=== PATIENT | male | born 1975 | race Two or more races ===

== ENCOUNTER 2021-08-15 23:25 | Inpatient (IN) | payer OTHER ==
[~2021-08-15] VITALS: Ht 157.5 cm; Wt 86.3 kg
[2021-08-15 22:50] VITALS: BP 122/76
[2021-08-15] MEDS ORDERED: ALBU2.5V8 IH (23:44)
[2021-08-16] MEDS ORDERED: HYDROcodone/APAP 5/325MG 1 TAB TABLET PO PRN
[2021-08-16] MEDS: diphenhydrAMINE 50 MG/ML VIAL IVP PRN ×2 (00:13→20:54)
[2021-08-16] MEDS: IV NORMAL SALINE 1000ML BAG 1,000 ML IV SCH ×2 (00:13→12:51)
[2021-08-16] MEDS ORDERED: ALBUTEROL SULFATE 8GM INHALER. INH PRN (00:15)
[2021-08-16] MEDS ORDERED: cefTRIAXone IV Push 1 GM VIAL. IVP SCH (00:30)
[2021-08-16 03:11] VITALS: BP 127/78
[2021-08-16 05:20] LABS: BASO # 0.1 x10^3/uL (0.0-0.2); BASO % 1 % (0-3); EOS % 0 % (0-3); LYMPH # 0.6 x10^3/uL (1.0-4.8); LYMPH % 9 % (24-48); MEAN CORPUSCULAR HEMOGLOBIN 25 pg (25-35); MEAN CORPUSCULAR HGB CONC 32 g/dL (31-37); MEAN CORPUSCULAR VOLUME 76 fL (79-100); MONO # 0.6 x10^3/uL (0.0-1.1); MONO % 9 % (0-9); NEUT # 5.4 x10^3/uL (1.8-7.7); NEUT % 81 % (31-73); PLATELET COUNT 72 x10^3/uL (140-400); RED BLOOD COUNT 4.88 x10^6/uL (4.30-5.70); RED CELL DISTRIBUTION WIDTH 14.3 % (11.5-14.5); WHITE BLOOD COUNT 6.6 x10^3/uL (4.0-11.0)
[2021-08-16 05:50] LABS: CALCIUM 8.4 mg/dL (8.5-10.1); CREATININE 1.5 mg/dL (0.7-1.3); GFR 49.9; POTASSIUM 4.5 mmol/L (3.5-5.1)
[2021-08-16 07:00] VITALS: BP 145/102
--- NOTE | 2021-08-16 08:54 | PDOC1 ---
History and Physical Date of Service: DOS: DATE: 08/16/21 TIME: 08:48 Chief Complaint: Chief Complain: Flulike symptoms History of Present Illness: HPI: 46-year-old male with past medical history of senior care psoriasis and sinusitis since May who presents to [facility] ER for flulike symptoms and a rash since last Monday. Apparently, he was admitted in February 2020 for respiratory failure but he was both influenza and Covid negative at that time. Patient has also been dealing with sinusitis since May is ever since he stopped taking Cosentyx for his psoriasis. He has been on 3 different antibiotics and he says that his last CT showed acute on chronic sinusitis. Patient does report yellow sputum production and postnasal drip and cough. He also reports that his fevers on Monday was up to 103. He also describes his rash is starting in his upper extremities and his chest which is dark red and there is some itchiness. Patient denies any chills, abdominal pain, bloody stools, dysuria, chest pain or syncope or palpitations. S Past Medical/Surgical History: PMH/PSH: Past Medical Histor: sinus infections Past Surgical History: LIPOMA REMOVAL Allergies: Allergies: Coded Allergies: blue dye (Verified Allergy, Severe, Anaphylaxis, 08/16/21) red dye (Verified Allergy, Severe, Anaphylaxis, 08/16/21) ibuprofen (Verified Allergy, Unknown, ANAPHYLAXIS, 08/16/21) POSSIBLY DUE TO RED OR BLUE DYE Family History: Family History: Reviewed with no relative findings in the chart Social History: Social History: Denies any alcohol, tobacco or drug abuse Current Medications: Current Medications Current Medications Sodium Chloride 1,000 ml @ 75 mls/hr [id number] IV Last administered on 08/16/21at 00:13; Start 08/16/21 at 00:00 Diphenhydramine HCl (Benadryl) 50 mg PRN Q6HRS PRN IVP ITCHING Last administer ed on 08/16/21at 00:13; Start 08/16/21 at 00:00 Acetaminophen/ Hydrocodone Bitart (Lortab 5/325) 1 tab PRN Q4HRS PRN PO PAIN; Start 08/16/21 at 00:00 Ceftriaxone Sodium (Rocephin) 1 gm Q24H IVP Last administered on 08/16/21at 00:14; Start 08/16/21 at 00:30 Albuterol Sulfate (Ventolin Hfa) 2 puff PRN Q4HRS PRN INH SOA Last administered on 08/16/21at 00:12; Start 08/16/21 at 00:15 Active Scripts Active Reported Proair Hfa Inhaler (Albuterol Sulfate) 8.5 Gm Hfa.aer.ad 2 Puff IH Q4HRS PRN 21 Days ROS: Review of Systems Review of System REVIEW OF SYSTEMS: GENERAL: Flulike symptoms SKIN: No bruising, hair changes or rashes. EYES: No blurred, double or loss of vision. NOSE AND THROAT: No history of nosebleeds, hoarseness or sore throat. HEART: No history of palpitations, chest pain or shortness of breath on exertion. LUNGS: Positive for shortness of breath GASTROINTESTINAL: Denies changes in appetite, nausea, vomiting, diarrhea or constipation. GENITOURINARY: No history of frequency, urgency, hesitancy or nocturia. NEUROLOGIC: Denies history of numbness, tingling, or tremor. PSYCHIATRIC: No history of panic, anxiety or depression. ENDOCRINE: No history of heat or cold intolerance, polyuria or polydipsia. EXTREMITIES: Denies joint pain, pain on walking or stiffness. Physical Exam: Vital Signs: Vital Signs Date Time Temp Pulse Resp B/P (MAP) Pulse Ox O2 Delivery O2 Flow Rate FiO2 08/16/21 08:00 Nasal Cannula 4.0 08/16/21 07:00 97.7 72 20 145/102 (116) 97 97.7 Physcial Exam: General: Well developed, well nourished, no acute distress, well appearing HEENT: Pupils equally round and reactive to light, EOMI, no discharge, normal conjunctiva Neck: Supple, no nuchal rigidity, no JVD, trachea midline, no tenderness Cardiac: RRR, no murmurs, no gallops, no rubs Chest/Lungs: CTAB, no wheeze, no rhonchi, no crackles Abdomen: soft, non-distended, no guarding, no peritoneal signs, non-tender Back: No tenderness Extremities: Diffuse purpuric-like rash on his extremities torso and chest and lower extremities. There are definitely psoriatic lesions on his trunk and elbows. Nontender or no bleeding. Neuro: Alert and oriented x 4, no focal deficits, normal speech Labs: Labs: Laboratory Tests Test 08/16/21 04:50 White Blood Count 6.6 x10^3/uL (4.0-11.0) Red Blood Count 4.88 x10^6/uL (4.30-5.70) Hemoglobin 12.0 g/dL (13.0-17.5) Hematocrit 37.0 % (39.0-53.0) Mean Corpuscular Volume 76 fL (79-100) Mean Corpuscular Hemoglobin 25 pg (25-35) Mean Corpuscular Hemoglobin Concent 32 g/dL (31-37) Red Cell Distribution Width 14.3 % (11.5-14.5) Platelet Count 72 x10^3/uL (140-400) Neutrophils (%) (Auto) 81 % (31-73) Lymphocytes (%) (Auto) 9 % (24-48) Monocytes (%) (Auto) 9 % (0-9) Eosinophils (%) (Auto) 0 % (0-3) Basophils (%) (Auto) 1 % (0-3) Neutrophils # (Auto) 5.4 x10^3/uL (1.8-7.7) Lymphocytes # (Auto) 0.6 x10^3/uL (1.0-4.8) Monocytes # (Auto) 0.6 x10^3/uL (0.0-1.1) Eosinophils # (Auto) 0.0 x10^3/uL (0.0-0.7) Basophils # (Auto) 0.1 x10^3/uL (0.0-0.2) Sodium Level 133 mmol/L (136-145) Potassium Level 4.5 mmol/L (3.5-5.1) Chloride Level 101 mmol/L (98-107) Carbon Dioxide Level 25 mmol/L (21-32) Anion Gap 7 (6-14) Blood Urea Nitrogen 28 mg/dL (8-26) Creatinine 1.5 mg/dL (0.7-1.3) Estimated GFR (Cockcroft-Gault) 49.9 Glucose Level 169 mg/dL (70-99) Calcium Level 8.4 mg/dL (8.5-10.1) Magnesium Level 2.0 mg/dL (1.8-2.4) Laboratory Tests Test 08/16/21 04:50 White Blood Count 6.6 x10^3/uL (4.0-11.0) Red Blood Count 4.88 x10^6/uL (4.30-5.70) Hemoglobin 12.0 g/dL (13.0-17.5) Hematocrit 37.0 % (39.0-53.0) Mean Corpuscular Volume 76 fL (79-100) Mean Corpuscular Hemoglobin 25 pg (25-35) Mean Corpuscular Hemoglobin Concent 32 g/dL (31-37) Red Cell Distribution Width 14.3 % (11.5-14.5) Platelet Count 72 x10^3/uL (140-400) Neutrophils (%) (Auto) 81 % (31-73) Lymphocytes (%) (Auto) 9 % (24-48) Monocytes (%) (Auto) 9 % (0-9) Eosinophils (%) (Auto) 0 % (0-3) Basophils (%) (Auto) 1 % (0-3) Neutrophils # (Auto) 5.4 x10^3/uL (1.8-7.7) Lymphocytes # (Auto) 0.6 x10^3/uL (1.0-4.8) Monocytes # (Auto) 0.6 x10^3/uL (0.0-1.1) Eosinophils # (Auto) 0.0 x10^3/uL (0.0-0.7) Basophils # (Auto) 0.1 x10^3/uL (0.0-0.2) Sodium Level 133 mmol/L (136-145) Potassium Level 4.5 mmol/L (3.5-5.1) Chloride Level 101 mmol/L (98-107) Carbon Dioxide Level 25 mmol/L (21-32) Anion Gap 7 (6-14) Blood Urea Nitrogen 28 mg/dL (8-26) Creatinine 1.5 mg/dL (0.7-1.3) Estimated GFR (Cockcroft-Gault) 49.9 Glucose Level 169 mg/dL (70-99) Calcium Level 8.4 mg/dL (8.5-10.1) Magnesium Level 2.0 mg/dL (1.8-2.4) Images: Images PROCEDURE: CHEST PA & LATERAL XR CHEST 2V History: Reason: respiratory issues since 01/16, SOB / Spl. Instructions: / History: Comparison: July 17, 2021 Findings: Mild multifocal opacities bilaterally. No pleural effusion. No pneumothorax. Normal heart size. Chronic right clavicular fracture. Impression: 1. Mild multifocal ill-defined opacities bilaterally, may represent infection including viral pneumonia. Assessment/Plan Assessment/Plan Acute hypoxic respiratory failure Atypical bilateral pneumonia, possible viral organisms Acute electrolyte derangementhyponatremia, hypochloremia, hyperkalemia suggestive of volume depletion ELSA due to vasomotor nephropathy Thrombocytopenia, concerning for ITP Admit to hospitalist service for further management Pulmonary consult O2 supplementation to maintain O2 saturations greater than 90% Continue empiric IV antibiotics Pending Legionella urine antigen and MRSA Continue IV fluids IV electrolyte replacement as needed Avoid nephrotoxic agents Strict I's/O and monitor urine output Hematology consult Will start on prednisone 40 mg twice daily Trend platelets daily Clobetasol cream for his psoriasis Pending HIV and hepatitis panel Lovenox for DVT prophylaxis Regular diet CODE STATUS full Discussed with RN and SW Disposition inpatient management as above DPOA: Undesignated Justifications for Admission Other Justification LEIGH ANN MARTÍNEZ MD Aug 16, 2021 08:54
[2021-08-16 10:48] LABS: HYPOCHROMIA SLIGHT; PLT ESTIMATE DECREASED (ADEQUATE)
[2021-08-16 11:00] VITALS: BP 131/85
[2021-08-16] MEDS ORDERED: PIP/TAZO PER PHARMACY MC PRN (12:30)
[2021-08-16] MEDS ORDERED: SODIUM CHLORIDE 0.65% NASAL SPRAY 45ML BOTTLE. NS PRN (12:30)
[2021-08-16] MEDS: PIPERACILLIN/TAZOBACTAM 3.375 GM in IV NORMAL SALINE 50ML 50 ML IV SCH ×2 (12:45→18:00)
[2021-08-16] MEDS ORDERED: diphenhydrAMINE 50 MG/ML VIAL IVP PRN (12:45)
[2021-08-16] MEDS ORDERED: PROCHLORPERAZINE 10 MG/2 ML VIAL. IV PRN (12:45)
[2021-08-16] MEDS ORDERED: SENNOSIDES 8.6 MG TABLET PO PRN (12:45)
[2021-08-16] MEDS ORDERED: LORazepam 0.5 MG TABLET PO PRN (12:45)
[2021-08-16] MEDS ORDERED: diphenhydrAMINE HCL 25 MG CAPSULE PO PRN ×2 (12:45)
[2021-08-16] MEDS ORDERED: ACETAMINOPHEN 325 MG TABLET. PO PRN (12:45)
[2021-08-16] MEDS ORDERED: ONDANSETRON PF 4 MG/2 ML VIAL. IVP PRN (12:45)
[2021-08-16] MEDS ORDERED: ZOLPIDEM 5 MG TABLET. PO PRN (12:45)
[2021-08-16] MEDS ORDERED: DEXTROSE 50% 25 GM / 50ML DISP.SYRIN. IV PRN (12:45)
[2021-08-16] MEDS ORDERED: DOCUSATE SODIUM 100 MG CAPSULE. PO PRN (12:45)
[2021-08-16] MEDS: predniSONE 20 MG TABLET PO SCH ×2 (12:50→20:52)
[2021-08-16 12:58] LABS: LACTATE DEHYDROGENASE 358 U/L (85-227)
[2021-08-16] MEDS: ENOXAPARIN 40 MG/0.4 ML SYRINGE. SQ SCH (13:58)
[2021-08-16 15:00] VITALS: BP 138/89
[2021-08-16 19:25] VITALS: BP 136/95
[2021-08-16 23:00] VITALS: BP 128/80
[2021-08-17] MEDS: PIPERACILLIN/TAZOBACTAM 3.375 GM in IV NORMAL SALINE 50ML 50 ML IV SCH ×5 (00:16→23:18)
[2021-08-17] MEDS: IV NORMAL SALINE 1000ML BAG 1,000 ML IV SCH ×2 (02:40→05:07)
[2021-08-17 03:00] VITALS: BP 129/87
[2021-08-17 07:00] VITALS: BP 124/84
[2021-08-17 07:51] LABS: BASO % 1 % (0-3); EOS % 0 % (0-3); HEMATOCRIT 37.3 % (39.0-53.0); HEMOGLOBIN 12.1 g/dL (13.0-17.5); LYMPH # 1.4 x10^3/uL (1.0-4.8); LYMPH % 15 % (24-48); MEAN CORPUSCULAR HEMOGLOBIN 25 pg (25-35); MEAN CORPUSCULAR HGB CONC 32 g/dL (31-37); MEAN CORPUSCULAR VOLUME 76 fL (79-100); MONO # 1.2 x10^3/uL (0.0-1.1); MONO % 13 % (0-9); NEUT # 6.7 x10^3/uL (1.8-7.7); NEUT % 71 % (31-73); PLATELET COUNT 74 x10^3/uL (140-400); RED BLOOD COUNT 4.89 x10^6/uL (4.30-5.70); RED CELL DISTRIBUTION WIDTH 14.6 % (11.5-14.5); WHITE BLOOD COUNT 9.4 x10^3/uL (4.0-11.0)
[2021-08-17] MEDS: predniSONE 20 MG TABLET PO SCH ×2 (08:13→20:22)
[2021-08-17 08:15] LABS: CALCIUM 8.4 mg/dL (8.5-10.1); CREATININE 1.1 mg/dL (0.7-1.3); GFR 71.4; MAGNESIUM 2.1 mg/dL (1.8-2.4); PHOSPHORUS 8.3 mg/dL (2.6-4.7); POTASSIUM 4.3 mmol/L (3.5-5.1)
[2021-08-17] MEDS: CLOBETASOL EMOLLIENT 0.05% TOPICAL CREAM 15GM TUBE. TP SCH ×2 (09:59→20:22)
--- NOTE | 2021-08-17 10:56 | PDOC ---
[employer] PROGRESS NOTE Date of Service DOS: DATE: 08/17/21 TIME: 10:54 Chief Complaint Chief Complaint Assessment/Plan Acute hypoxic respiratory failure Atypical bilateral pneumonia, possible viral organisms Acute electrolyte derangementhyponatremia, hypochloremia, hyperkalemia suggestive of volume depletion ELSA due to vasomotor nephropathy Thrombocytopenia, concerning for ITP Admit to hospitalist service for further management Pulmonary consult O2 supplementation to maintain O2 saturations greater than 90% Continue empiric IV antibiotics Pending Legionella urine antigen and MRSA Continue IV fluids IV electrolyte replacement as needed Avoid nephrotoxic agents Strict I's/O and monitor urine output Hematology consult Will start on prednisone 40 mg twice daily Trend platelets daily Clobetasol cream for his psoriasis Pending HIV and hepatitis panel Lovenox for DVT prophylaxis Regular diet CODE STATUS full Discussed with RN and DURGA Disposition inpatient management as above DPOA: Undesignated History of Present Illness History of Present Illness 46-year-old male with past medical history of half-way psoriasis and sinusitis since May who presents to [facility] ER for flulike symptoms and a rash since last Monday. Apparently, he was admitted in February 2020 for respiratory failure but he was both influenza and Covid negative at that time. Patient has also been dealing with sinusitis since May is ever since he stopped taking Cosentyx for his psoriasis. He has been on 3 different antibiotics and he says that his last CT showed acute on chronic sinusitis. Patient does report yellow sputum production and postnasal drip and cough. He also reports that his fevers on Monday was up to 103. He also describes his rash is starting in his upper extremities and his chest which is dark red and there is some itchiness. Patient denies any chills, abdominal pain, bloody stools, dysuria, chest pain or syncope or palpitations. 08/17/2021 No acute events overnight. Patient seen examined bedside. Still requiring 6 L nasal cannula of oxygen still saturating 96%. No other explanations for his hypoxia. Patient complains of chest tightness and nasal congestion. Does not really explain his hypoxia. Will obtain CT chest to rule out PE. Hematology evaluation still pending. Labs still pending. Tolerating prednisone well and progression of rash has stopped. Patient's chart, labs, images were reviewed and discussed with RN Vitals/I&O Vitals/I&O: Vital Signs Date Time Temp Pulse Resp B/P (MAP) Pulse Ox O2 Delivery O2 Flow Rate FiO2 08/17/21 08:00 Nasal Cannula 6.0 08/17/21 07:00 97.5 56 20 124/84 (97) 96 97.5 I & O 08/16/21 08/16/21 08/17/21 15:00 23:00 07:00 Intake Total 180 ml 180 ml Output Total 550 ml 1100 ml 925 ml Balance -370 ml -920 ml -925 ml Physical Exam General: Alert, Oriented X3, Cooperative Heart: Regular rate Lungs: Clear Abdomen: Normal bowel sounds Extremities: No clubbing Skin: No rashes Labs Labs: Laboratory Tests Test 08/16/21 13:00 08/17/21 07:25 Haptoglobin 322 mg/dL (23-355) Iron Level 100 ug/dL (65-175) Total Iron Binding Capacity 94 ug/dL (250-450) Iron Saturation 106 % (15-34) Erythropoietin 11.5 mIU/mL (2.6-18.5) White Blood Count 9.4 x10^3/uL (4.0-11.0) Red Blood Count 4.89 x10^6/uL (4.30-5.70) Hemoglobin 12.1 g/dL (13.0-17.5) Hematocrit 37.3 % (39.0-53.0) Mean Corpuscular Volume 76 fL (79-100) Mean Corpuscular Hemoglobin 25 pg (25-35) Mean Corpuscular Hemoglobin Concent 32 g/dL (31-37) Red Cell Distribution Width 14.6 % (11.5-14.5) Platelet Count 74 x10^3/uL (140-400) Neutrophils (%) (Auto) 71 % (31-73) Lymphocytes (%) (Auto) 15 % (24-48) Monocytes (%) (Auto) 13 % (0-9) Eosinophils (%) (Auto) 0 % (0-3) Basophils (%) (Auto) 1 % (0-3) Neutrophils # (Auto) 6.7 x10^3/uL (1.8-7.7) Lymphocytes # (Auto) 1.4 x10^3/uL (1.0-4.8) Monocytes # (Auto) 1.2 x10^3/uL (0.0-1.1) Eosinophils # (Auto) 0.0 x10^3/uL (0.0-0.7) Basophils # (Auto) 0.0 x10^3/uL (0.0-0.2) Sodium Level 136 mmol/L (136-145) Potassium Level 4.3 mmol/L (3.5-5.1) Chloride Level 102 mmol/L (98-107) Carbon Dioxide Level 24 mmol/L (21-32) Anion Gap 10 (6-14) Blood Urea Nitrogen 22 mg/dL (8-26) Creatinine 1.1 mg/dL (0.7-1.3) Estimated GFR (Cockcroft-Gault) 71.4 Glucose Level 165 mg/dL (70-99) Calcium Level 8.4 mg/dL (8.5-10.1) Phosphorus Level 8.3 mg/dL (2.6-4.7) Magnesium Level 2.1 mg/dL (1.8-2.4) Comment Review of Relevant I have reviewed the following items carlito (where applicable) has been applied. Medications: Current Medications Medications (Trade) Dose Ordered Sig/Gabe Route PRN Reason Start Time Stop Time Status Last Admin Dose Admin Clobetasol Propionate (Temovate) 1 shayy BID TP 08/17/21 09:00 08/17/21 09:59 Piperacillin Sod/ Tazobactam Sod 3.375 gm/Sodium Chloride 50 ml @ 100 mls/hr Q6HRS IV 08/16/21 13:00 08/17/21 05:07 Prednisone (Prednisone) 40 mg BID PO 08/16/21 13:30 08/17/21 08:13 Enoxaparin Sodium (Lovenox 40mg Syringe) 40 mg Q24H SQ 08/16/21 14:00 08/16/21 13:58 Prochlorperazine Edisylate (Compazine) 10 mg PRN Q6HRS PRN IV NAUSEA/VOMITING, 2nd CHOICE 08/16/21 12:45 08/17/21 02:15 Justifications for Admission Other Justification Pneumonia and thrombocytopenia LEIGH ANN MARTÍNEZ MD Aug 17, 2021 10:56
[2021-08-17 11:00] VITALS: BP 123/79
[2021-08-17] MEDS ORDERED: IOHEXOL 350 MG/ML 100 ML VIAL. IV ONE (11:00)
[2021-08-17] MEDS ORDERED: CONTRAST GIVEN. MC PRN (11:15)
--- NOTE | 2021-08-17 13:46 | RAD ---
CTA CHEST History: Shortness of breath. Technique: CT of the chest was performed with intravenous contrast. PE protocol. Maximum intensity pr ojection coronal and sagittal reconstructions were performed. Exposure: One or more of the following individualized dose reduction techniques were utilized for thi s examination: 1. Automated exposure control 2. Adjustment of the mA and/or kV according to patient size 3. Use of iterative reconstruction technique. Comparison: March 27, 2021 Findings: Chest: No definite pulmonary embolism although evaluation for distal pulmonary by is degraded by resp iratory motion. No aortic aneurysm or dissection. No coronary artery calcifications. Increased mediastinal, hilar or axillary lymphadenopathy. Largest right axillary lymph node measures 2.3 x 1.6 cm. Largest left axillary lymph node measures 2.6 x 1.4 cm. Largest mediastinal lymph node prevascular measures 3.8 x 3.0 cm. Largest right hilar lymph node measures 2.2 x 1.8 cm. Largest left hilar lymph node measures 1.6 x 1.7 cm. Small left and tiny right pleural effusion with adjacent atelectasis. Mild septal thickening with bennie undglass opacities. Left lower lobe 7 mm pulmonary nodule (series 3 image 89), increased compared to prior. Upper abdomen: Prior cholecystectomy. The spleen is enlarged measures 13.9 cm. Ill-defined hypoattenu ation within the right hepatic lobe measures approximately 4.0 x 3.7 cm, characterize on the current examination. Mild enlarged upper abdominal lymph nodes, similar compared to prior. Bones: No pathologic osseous lesions. Impression: 1. No definite pulmonary embolus although evaluation for distal pulmonary by is degraded by respirat ory motion. 2. Increased bulky mediastinal, hilar and axillary lymphadenopathy, concerning for malignancy such a s lymphoma or metastasis. 3. Increased splenomegaly. 4. Mild septal thickening with ground glass opacities, may represent pulmonary edema. 5. Small left and tiny right pleural effusions with adjacent atelectasis. 6. Increased indeterminate small left lower lobe pulmonary nodule. Recommend attention on follow-up. 7. Ill-defined hypoattenuation within the right hepatic lobe not well characterized on the current e xamination. If persistent clinical concern, MRI with and without contrast can further evaluate. Electronically signed by: Alonzo Hyman DO (08/17/2021 1:43 PM) [id number]
[2021-08-17] MEDS: ENOXAPARIN 40 MG/0.4 ML SYRINGE. SQ SCH (13:49)
[2021-08-17 15:00] VITALS: BP 121/83
[2021-08-17 19:00] VITALS: BP 140/95
[2021-08-17 23:07] VITALS: BP 128/88
[2021-08-17] MEDS: guaiFENesin/CODEINE 100mg/10mg 5 ML LIQUID PO PRN (23:18)
[2021-08-17] MEDS: diphenhydrAMINE 50 MG/ML VIAL IVP PRN (23:23)
[2021-08-18] VITALS (7 sets, daily range): BP systolic 119–147; BP diastolic 78–93
[2021-08-18] MEDS: IV NORMAL SALINE 1000ML BAG 1,000 ML IV SCH ×2 (05:59→19:38)
[2021-08-18] MEDS: diphenhydrAMINE 50 MG/ML VIAL IVP PRN (05:59)
[2021-08-18] MEDS: guaiFENesin/CODEINE 100mg/10mg 5 ML LIQUID PO PRN ×2 (05:59→21:43)
[2021-08-18] MEDS: PIPERACILLIN/TAZOBACTAM 3.375 GM in IV NORMAL SALINE 50ML 50 ML IV SCH ×4 (06:00→23:42)
[2021-08-18] MEDS ORDERED: CONTRAST GIVEN. MC PRN (08:45)
[2021-08-18] MEDS ORDERED: IOHEXOL 240 MG/ML 50ML VIAL. PO ONE (08:45)
[2021-08-18 09:38] LABS: BASO # 0.1 x10^3/uL (0.0-0.2); BASO % 1 % (0-3); EOS # 0.1 x10^3/uL (0.0-0.7); EOS % 1 % (0-3); HEMATOCRIT 39.9 % (39.0-53.0); HEMOGLOBIN 12.5 g/dL (13.0-17.5); LYMPH # 2.4 x10^3/uL (1.0-4.8); LYMPH % 18 % (24-48); MEAN CORPUSCULAR HEMOGLOBIN 24 pg (25-35); MEAN CORPUSCULAR HGB CONC 31 g/dL (31-37); MEAN CORPUSCULAR VOLUME 77 fL (79-100); MONO # 1.3 x10^3/uL (0.0-1.1); MONO % 10 % (0-9); NEUT # 9.3 x10^3/uL (1.8-7.7); NEUT % 70 % (31-73); PLATELET COUNT 76 x10^3/uL (140-400); RED BLOOD COUNT 5.17 x10^6/uL (4.30-5.70); RED CELL DISTRIBUTION WIDTH 14.8 % (11.5-14.5); WHITE BLOOD COUNT 13.3 x10^3/uL (4.0-11.0)
[2021-08-18 09:41] LABS: GFR 79.8; MAGNESIUM 2.1 mg/dL (1.8-2.4); POTASSIUM 4.4 mmol/L (3.5-5.1)
--- NOTE | 2021-08-18 11:37 | RAD ---
CT ABDOMEN+PELVIS W History: Pain Technique: CT abdomen pelvis with enteric contrast.. Coronal and sagittal reconstructions were perfor med. Exposure: One or more of the following individualized dose reduction techniques were utilized for thi s examination: 1. Automated exposure control 2. Adjustment of the mA and/or kV according to patient size 3. Use of iterative reconstruction technique. Comparison: CT chest August 17, 2021 Findings: Lower chest: Small left and tiny right pleural effusion with adjacent atelectasis. Mild septal thicke aldo with groundglass opacities. Unchanged left lower lobe pulmonary nodule. Abdomen and pelvis: Minimal perihepatic ascites. Prior cholecystectomy. Ill-defined hypoattenuating l esion within the right hepatic lobe measures 4.1 x 2.8 cm. The spleen is enlarged measures 13.2 cm. T he adrenal glands and pancreas are unremarkable. Nonobstructing right intrarenal calculus measures 0.7 cm. Additional smaller punctate bilateral renal calculi. No hydronephrosis. Normal appearance of the urinary bladder. Moderate colonic stool burden. Appendix not well seen. No evidence of bowel obstruction. Enteric cont rast opacifies to the level of the cecum. Mild mesenteric edema with small pelvic ascites. Edema adjacent to the proximal duodenum with potential wall thickening although evaluation is degrade d without intravenous contrast. Mildly enlarged gastrohepatic lymph nodes largest measure 1.5 x 0.9 c m. Mildly prominent retroperitoneal lymph nodes largest left periaortic lymph node measures 1.6 x 1.2 cm. Enlarged right external iliac chain lymph node measures 2.4 x 1.0 cm. Left external iliac chain lymph node measures 2.1 x 0.7 cm. Moderate prominent inguinal lymph nodes. Mild body wall edema. Bones: Grade 1 anterolisthesis L5 on S1 due to bilateral pars defects. Multilevel lumbar spondylosis most prominent L5-S1. Impression: 1. Small abdominal pelvic ascites with mesenteric edema. 2. Edema extends along the proximal duodenum with potential wall thickening, may represent duodeniti s or reactive changes. 3. Ill-defined hypodense mass within the right hepatic lobe. Recommend MRI with and without contrast to further assess. 4. Indeterminate mildly enlarged abdominal and pelvic lymph nodes. Recommend attention on follow-up. 5. Mild pulmonary edema and pleural effusions, unchanged. 6. Nonobstructing intrarenal calculi. No hydronephrosis. Electronically signed by: Alonzo Hyman DO (08/18/2021 11:35 AM) [id number]
[2021-08-18] MEDS: BENZONATATE 100 MG CAPSULE. PO SCH ×3 (12:20→21:43)
[2021-08-18] MEDS: predniSONE 20 MG TABLET PO SCH ×2 (12:20→21:43)
[2021-08-18] MEDS: CLOBETASOL EMOLLIENT 0.05% TOPICAL CREAM 15GM TUBE. TP SCH ×2 (12:20→21:00)
--- NOTE | 2021-08-18 13:39 | PDOC ---
[employer] PROGRESS NOTE Date of Service DOS: DATE: 08/18/21 TIME: 13:36 Chief Complaint Chief Complaint Assessment/Plan Acute hypoxic respiratory failure Atypical bilateral pneumonia, possible viral organisms Acute electrolyte derangementhyponatremia, hypochloremia, hyperkalemia suggestive of volume depletion ELSA due to vasomotor nephropathy Thrombocytopenia, concerning for ITP Small abdominal pelvic ascites with mesenteric edema. Ill-defined hypodense mass within the right hepatic lobe Nonobstructing intrarenal calculi Increased bulky mediastinal, hilar and axillary lymphadenopathy, concerning for malignancy such as lymphoma or metastasis. Increased splenomegaly. small left lower lobe pulmonary nodule Pending CEA and AFP levels Pending copper levels Pulmonary consult O2 supplementation to maintain O2 saturations greater than 90% Continue empiric IV antibiotics Pending Legionella urine antigen and MRSA Continue IV fluids IV electrolyte replacement as needed Avoid nephrotoxic agents Strict I's/O and monitor urine output Hematology consult Will start on prednisone 40 mg twice daily Trend platelets daily Clobetasol cream for his psoriasis Pending HIV and hepatitis panel Lovenox for DVT prophylaxis Regular diet CODE STATUS full Discussed with RN and SW Disposition inpatient management as above DPOA: Undesignated History of Present Illness History of Present Illness 46-year-old male with past medical history of assisted psoriasis and sinusitis since May who presents to [facility] ER for flulike symptoms and a rash since last Monday. Apparently, he was admitted in February 2020 for respiratory failure but he was both influenza and Covid negative at that time. Patient has also been dealing with sinusitis since May is ever since he stopped taking Cosentyx for his psoriasis. He has been on 3 different antibiotics and he says that his last CT showed acute on chronic sinusitis. Patient does report yellow sputum production and postnasal drip and cough. He also reports that his fevers on Monday was up to 103. He also describes his rash is starting in his upper extremities and his chest which is dark red and there is some itchiness. Patient denies any chills, abdominal pain, bloody stools, dysuria, chest pain or syncope or palpitations. 08/17/2021 No acute events overnight. Patient seen examined bedside. Still requiring 6 L nasal cannula of oxygen still saturating 96%. No other explanations for his hypoxia. Patient complains of chest tightness and nasal congestion. Does not really explain his hypoxia. Will obtain CT chest to rule out PE. Hematology evaluation still pending. Labs still pending. Tolerating prednisone well and progression of rash has stopped. Patient's chart, labs, images were reviewed and discussed with RN Vitals/I&O Vitals/I&O: Vital Signs Date Time Temp Pulse Resp B/P (MAP) Pulse Ox O2 Delivery O2 Flow Rate FiO2 08/18/21 11:00 97.3 66 20 129/88 (102) 96 Nasal Cannula 6.0 97.3 I & O 08/17/21 08/17/21 08/18/21 15:00 23:00 07:00 Intake Total 300 ml 500 ml Output Total 650 ml Balance -650 ml 300 ml 500 ml Physical Exam General: Alert, Oriented X3, Cooperative Heart: Regular rate Lungs: Clear Abdomen: Normal bowel sounds Extremities: No clubbing Skin: No rashes Labs Labs: Laboratory Tests Test 08/18/21 07:53 White Blood Count 13.3 x10^3/uL (4.0-11.0) Red Blood Count 5.17 x10^6/uL (4.30-5.70) Hemoglobin 12.5 g/dL (13.0-17.5) Hematocrit 39.9 % (39.0-53.0) Mean Corpuscular Volume 77 fL (79-100) Mean Corpuscular Hemoglobin 24 pg (25-35) Mean Corpuscular Hemoglobin Concent 31 g/dL (31-37) Red Cell Distribution Width 14.8 % (11.5-14.5) Platelet Count 76 x10^3/uL (140-400) Neutrophils (%) (Auto) 70 % (31-73) Lymphocytes (%) (Auto) 18 % (24-48) Monocytes (%) (Auto) 10 % (0-9) Eosinophils (%) (Auto) 1 % (0-3) Basophils (%) (Auto) 1 % (0-3) Neutrophils # (Auto) 9.3 x10^3/uL (1.8-7.7) Lymphocytes # (Auto) 2.4 x10^3/uL (1.0-4.8) Monocytes # (Auto) 1.3 x10^3/uL (0.0-1.1) Eosinophils # (Auto) 0.1 x10^3/uL (0.0-0.7) Basophils # (Auto) 0.1 x10^3/uL (0.0-0.2) Sodium Level 135 mmol/L (136-145) Potassium Level 4.4 mmol/L (3.5-5.1) Chloride Level 100 mmol/L (98-107) Carbon Dioxide Level 26 mmol/L (21-32) Anion Gap 9 (6-14) Blood Urea Nitrogen 20 mg/dL (8-26) Creatinine 1.0 mg/dL (0.7-1.3) Estimated GFR (Cockcroft-Gault) 79.8 Glucose Level 94 mg/dL (70-99) Calcium Level 8.0 mg/dL (8.5-10.1) Magnesium Level 2.1 mg/dL (1.8-2.4) Comment Review of Relevant I have reviewed the following items carlito (where applicable) has been applied. Medications: Current Medications Medications (Trade) Dose Ordered Sig/Gabe Route PRN Reason Start Time Stop Time Status Last Admin Dose Admin Benzonatate (Tessalon Perle) 100 mg [id number] PO 08/18/21 09:00 08/18/21 12:20 Guaifenesin/ Codeine Phosphate (Robitussin Ac) 5 ml PRN Q6HRS PRN PO COUGH 08/17/21 23:15 08/18/21 05:59 Iohexol (Omnipaque 240 Mg/ml) 50 ml 1X ONCE PO 08/18/21 08:45 08/18/21 08:46 DC 08/18/21 08:45 Justifications for Admission Other Justification Pneumonia and thrombocytopenia LEIGH ANN MARTÍNEZ MD Aug 18, 2021 13:39
--- NOTE | 2021-08-18 16:37 | CONS ---
DATE OF CONSULTATION: 08/18/2021 ATTENDING PHYSICIAN: Alexander Lucas DO REASON FOR CONSULTATION: Respiratory failure, abnormal CT chest. HISTORY OF PRESENT ILLNESS: The patient is a 46-year-old male with a BMI of 34. He has no history of tobacco use. He has a history of psoriasis for which he has been on Cosentyx, an immune modulating drug, which he stopped in May. He was hospitalized in February where he was admitted with respiratory failure. This was related to a viral illness. The patient states he was in the ICU. The patient states that he has been battling with respiratory tract infection since then. He was also recently diagnosed with acute on chronic sinusitis. The patient has been on multiple antibiotics. He was brought into the hospital with increasing dyspnea and dizziness. He also has a cough with some yellow sputum production as well as some occasional hemoptysis. He had a fever of 103. He has developed a rash in his upper extremities. He has chronic psoriatic lesions in his belly and in his lower extremities, but the rash is new. There is no recent abdominal pain. No chest pain. No dysuria. No focal weakness. I reviewed patient's CT chest and this was compared with the previous one from February. The patient's current CT chest has shown: Progression of his mediastinal, hilar and axillary lymphadenopathy. Largest mediastinal lymph node in the prevascular area 3.8 x 3 cm in size. There is a small left pleural effusion. There is a left lower lobe 7 mm pulmonary nodule, which is slightly increased compared to prior study. There is some abnormality in the right hepatic lobe. The spleen is enlarged. No definite pulmonary embolism seen. He also has a CT abdomen and pelvis, which showed a small abdominal pelvic ascites and mesenteric edema. There is evidence of duodenitis. There is ill-defined hypodense mass in the right hepatic lobe. Consultation requested for further evaluation and management. He is currently requiring 5 liters of oxygen. The patient has also been on Zosyn. He states that his rash is improving. He is also on oral prednisone. PAST MEDICAL HISTORY: Significant for: 1. History of respiratory failure in February. 2. History of prior mediastinal andr hilar adenopathy and lung nodule. 3. History of acute and chronic sinusitis. 4. History of psoriasis and has been on immune modulating drug Cosentyx. SURGERIES: No recent surgery. ALLERGIES: IBUPROFEN AND RED DYE. MEDICATIONS: Reviewed as listed in the MRAD. REVIEW OF SYSTEMS: Twelve-point review of system obtained. Pertinent positives discussed in my present illness, otherwise noncontributory. All systems that were negative were reviewed as well. SOCIAL HISTORY: Nonsmoker. FAMILY HISTORY: Noncontributory to lungs. PHYSICAL EXAMINATION: VITAL SIGNS: Reviewed. He is currently afebrile. There is no fever reported since his hospitalization. Blood pressure is stable, pulse ox 96% on 6 liters. NECK: Supple. LUNGS: With diminished breath sounds posteriorly. CARDIOVASCULAR: With a regular rate. ABDOMEN: Soft and obese. EXTREMITIES: With the anterior abdominal and lower extremity psoriatic lesions. He has a rash in the anterior chest and the upper arms.. LABORATORY DATA: Reviewed. His MRSA screen is negative. BUN 20, creatinine 1.0. White cell count 13.3, hemoglobin 12.5 and platelets are 76,000. IMPRESSION: 1. Acute hypoxic respiratory failure requiring 6 liters of oxygen due to suspected pneumonitis. He has been battling with upper and lower respiratory tract symptoms since last year after he had COVID vaccine. He has also been on Cosentyx for psoriasis. This can contribute to respiratory tract infections.. He could be at possible risk for lymphoma related to drug. 2. Abnormal CT chest with increase in mediastinal, hilar and axillary lymphadenopathy along with splenomegaly and ascites. The clinical picture is suspicious for lymphoma. Less likely Sarcoidosis. 3. No significant tobacco history. 4. Thrombocytopenia. This is associated with a rash. Could be ITP versus related to hypersplenism vs Lymphoma. He is currently on Lovenox, which should be withheld as well. 5. Mild leukocytosis. 6. Acute sinusitis and possible mild pneumonitis. RECOMMENDATIONS: 1. Continued present oxygen to keep saturation 94% and above. 2. Continue with oral steroids. 3. Continue with Zosyn. 4. Consider Infectious Disease consult. 5. Hold Lovenox until thrombocytopenia has resolved. 7. The patient may eventually need mediastinal lymph node sampling either via mediastinoscopy or EUS.However axillary LN bx would be safer 8. We would recommend MRI of the liver lesion to rule out any mass. 9. Discussed with RN and the patient and we will follow along with you. JENNIFER DR: Steven TID: [id number] MTDD
[2021-08-19] VITALS (8 sets, daily range): BP systolic 118–145; BP diastolic 82–90
[2021-08-19 03:59] LABS: BASO # 0.1 x10^3/uL (0.0-0.2); BASO % 1 % (0-3); EOS # 0.1 x10^3/uL (0.0-0.7); EOS % 1 % (0-3); HEMATOCRIT 42.1 % (39.0-53.0); HEMOGLOBIN 13.6 g/dL (13.0-17.5); LYMPH # 2.1 x10^3/uL (1.0-4.8); LYMPH % 20 % (24-48); MEAN CORPUSCULAR HEMOGLOBIN 25 pg (25-35); MEAN CORPUSCULAR HGB CONC 32 g/dL (31-37); MEAN CORPUSCULAR VOLUME 77 fL (79-100); MONO # 0.8 x10^3/uL (0.0-1.1); MONO % 8 % (0-9); NEUT # 7.6 x10^3/uL (1.8-7.7); NEUT % 71 % (31-73); PLATELET COUNT 97 x10^3/uL (140-400); RED BLOOD COUNT 5.49 x10^6/uL (4.30-5.70); RED CELL DISTRIBUTION WIDTH 14.8 % (11.5-14.5); WHITE BLOOD COUNT 10.7 x10^3/uL (4.0-11.0)
[2021-08-19 04:13] LABS: CALCIUM 8.9 mg/dL (8.5-10.1); CREATININE 1.1 mg/dL (0.7-1.3); GFR 71.4; MAGNESIUM 2.2 mg/dL (1.8-2.4); POTASSIUM 4.8 mmol/L (3.5-5.1)
[2021-08-19 05:18] LABS: AFPT MARKER 2.8 ng/mL (0.0-6.9)
[2021-08-19] MEDS: PIPERACILLIN/TAZOBACTAM 3.375 GM in IV NORMAL SALINE 50ML 50 ML IV SCH ×4 (05:53→23:51)
[2021-08-19] MEDS: IV NORMAL SALINE 1000ML BAG 1,000 ML IV SCH ×2 (08:00→21:20)
--- NOTE | 2021-08-19 08:46 | PDOC ---
PULMONARY PROGRESS NOTES DATE: 08/19/21 TIME: 08:45 Subjective c/o cough/ nasal congestion Vitals Vital Signs Date Time Temp Pulse Resp B/P (MAP) Pulse Ox O2 Delivery O2 Flow Rate FiO2 08/19/21 03:00 97.8 55 22 134/86 (102) 92 Nasal Cannula 6.0 97.8 General: Alert, No acute distress Lungs: Clear Cardiovascular: S1 Abdomen: Soft, Non-tender Extremities: No Edema, Other (Psoriatic lesions and rash ) Labs Laboratory Tests Test 08/18/21 07:33 08/18/21 07:53 08/19/21 03:00 Tumor Marker Alpha Fetoprotein 2.8 ng/mL (0.0-6.9) White Blood Count 13.3 x10^3/uL (4.0-11.0) 10.7 x10^3/uL (4.0-11.0) Red Blood Count 5.17 x10^6/uL (4.30-5.70) 5.49 x10^6/uL (4.30-5.70) Hemoglobin 12.5 g/dL (13.0-17.5) 13.6 g/dL (13.0-17.5) Hematocrit 39.9 % (39.0-53.0) 42.1 % (39.0-53.0) Mean Corpuscular Volume 77 fL (79-100) 77 fL (79-100) Mean Corpuscular Hemoglobin 24 pg (25-35) 25 pg (25-35) Mean Corpuscular Hemoglobin Concent 31 g/dL (31-37) 32 g/dL (31-37) Red Cell Distribution Width 14.8 % (11.5-14.5) 14.8 % (11.5-14.5) Platelet Count 76 x10^3/uL (140-400) 97 x10^3/uL (140-400) Neutrophils (%) (Auto) 70 % (31-73) 71 % (31-73) Lymphocytes (%) (Auto) 18 % (24-48) 20 % (24-48) Monocytes (%) (Auto) 10 % (0-9) 8 % (0-9) Eosinophils (%) (Auto) 1 % (0-3) 1 % (0-3) Basophils (%) (Auto) 1 % (0-3) 1 % (0-3) Neutrophils # (Auto) 9.3 x10^3/uL (1.8-7.7) 7.6 x10^3/uL (1.8-7.7) Lymphocytes # (Auto) 2.4 x10^3/uL (1.0-4.8) 2.1 x10^3/uL (1.0-4.8) Monocytes # (Auto) 1.3 x10^3/uL (0.0-1.1) 0.8 x10^3/uL (0.0-1.1) Eosinophils # (Auto) 0.1 x10^3/uL (0.0-0.7) 0.1 x10^3/uL (0.0-0.7) Basophils # (Auto) 0.1 x10^3/uL (0.0-0.2) 0.1 x10^3/uL (0.0-0.2) Sodium Level 135 mmol/L (136-145) 136 mmol/L (136-145) Potassium Level 4.4 mmol/L (3.5-5.1) 4.8 mmol/L (3.5-5.1) Chloride Level 100 mmol/L (98-107) 101 mmol/L (98-107) Carbon Dioxide Level 26 mmol/L (21-32) 30 mmol/L (21-32) Anion Gap 9 (6-14) 5 (6-14) Blood Urea Nitrogen 20 mg/dL (8-26) 19 mg/dL (8-26) Creatinine 1.0 mg/dL (0.7-1.3) 1.1 mg/dL (0.7-1.3) Estimated GFR (Cockcroft-Gault) 79.8 71.4 Glucose Level 94 mg/dL (70-99) 125 mg/dL (70-99) Calcium Level 8.0 mg/dL (8.5-10.1) 8.9 mg/dL (8.5-10.1) Magnesium Level 2.1 mg/dL (1.8-2.4) 2.2 mg/dL (1.8-2.4) Laboratory Tests Test 08/19/21 03:00 White Blood Count 10.7 x10^3/uL (4.0-11.0) Red Blood Count 5.49 x10^6/uL (4.30-5.70) Hemoglobin 13.6 g/dL (13.0-17.5) Hematocrit 42.1 % (39.0-53.0) Mean Corpuscular Volume 77 fL (79-100) Mean Corpuscular Hemoglobin 25 pg (25-35) Mean Corpuscular Hemoglobin Concent 32 g/dL (31-37) Red Cell Distribution Width 14.8 % (11.5-14.5) Platelet Count 97 x10^3/uL (140-400) Neutrophils (%) (Auto) 71 % (31-73) Lymphocytes (%) (Auto) 20 % (24-48) Monocytes (%) (Auto) 8 % (0-9) Eosinophils (%) (Auto) 1 % (0-3) Basophils (%) (Auto) 1 % (0-3) Neutrophils # (Auto) 7.6 x10^3/uL (1.8-7.7) Lymphocytes # (Auto) 2.1 x10^3/uL (1.0-4.8) Monocytes # (Auto) 0.8 x10^3/uL (0.0-1.1) Eosinophils # (Auto) 0.1 x10^3/uL (0.0-0.7) Basophils # (Auto) 0.1 x10^3/uL (0.0-0.2) Sodium Level 136 mmol/L (136-145) Potassium Level 4.8 mmol/L (3.5-5.1) Chloride Level 101 mmol/L (98-107) Carbon Dioxide Level 30 mmol/L (21-32) Anion Gap 5 (6-14) Blood Urea Nitrogen 19 mg/dL (8-26) Creatinine 1.1 mg/dL (0.7-1.3) Estimated GFR (Cockcroft-Gault) 71.4 Glucose Level 125 mg/dL (70-99) Calcium Level 8.9 mg/dL (8.5-10.1) Magnesium Level 2.2 mg/dL (1.8-2.4) Medications Active Scripts Medications Dose Route/Sig Max Daily Dose Days Date Category Proair Hfa Inhaler (Albuterol Sulfate) 8.5 Gm Hfa.aer.ad 2 Puff IH Q4HRS PRN 21 08/15/21 Reported Impression . IMPRESSION: 1. Acute hypoxic respiratory failure requiring 6 liters of oxygen due to suspected pneumonitis. He has been battling with upper and lower respiratory tract symptoms since last year after he had COVID vaccine. He has also been on Cosentyx for psoriasis. This can contribute to respiratory tract infections.. He could be at possible risk for lymphoma related to drug. 2. Abnormal CT chest with increase in mediastinal, hilar and axillary lymphadenopathy along with splenomegaly and ascites. The clinical picture is suspicious for lymphoma. Less likely Sarcoidosis. 3. No significant tobacco history. 4. Thrombocytopenia. This is associated with a rash. Could be ITP versus related to hypersplenism vs Lymphoma. He is currently on Lovenox, which should be withheld as well. 5. Mild leukocytosis. 6. Acute sinusitis and possible mild pneumonitis. . Plan . RECOMMENDATIONS: 1. Continued present oxygen to keep saturation 94% and above. 2. Continue with oral steroids. 3. Continue with Zosyn. 4. Consider Infectious Disease consult. 5. Hold Lovenox until thrombocytopenia has resolved. 7. The patient may eventually need mediastinal lymph node sampling either via mediastinoscopy or EUS.However axillary LN bx would be safer 8. We would recommend MRI of the liver lesion to rule out any mass. 9. Discussed with RN and Dr Hanson and the patient . Agree with Ax LN bx. BARBARA ENRIQUE MD Aug 19, 2021 08:45
[2021-08-19] MEDS: BENZONATATE 100 MG CAPSULE. PO SCH ×3 (09:01→22:01)
[2021-08-19] MEDS: CLOBETASOL EMOLLIENT 0.05% TOPICAL CREAM 15GM TUBE. TP SCH ×2 (09:01→21:00)
[2021-08-19] MEDS: predniSONE 20 MG TABLET PO SCH ×2 (09:01→22:01)
[2021-08-19] MEDS ORDERED: LIDOCAINE WITH 8.4% SOD BICARB 3 ML DISP.SYRIN. ONE (09:37)
[2021-08-19] MEDS ORDERED: LIDOCAINE WITH 8.4% SOD BICARB 3 ML DISP.SYRIN. IJ ONE (09:45)
--- NOTE | 2021-08-19 09:55 | NUR ---
PATIENT RETURNED TO THE UNIT FROM LYMPH NODE BIOPSY, BAND AIDE IN PLACE T LEFT AXILLA AREA, PATIENT DENIES PAIN/DISCOMFORT.
--- NOTE | 2021-08-19 12:13 | PDOC ---
[employer] PROGRESS NOTE Date of Service DOS: DATE: 08/19/21 TIME: 12:12 Chief Complaint Chief Complaint Assessment/Plan Acute hypoxic respiratory failure Atypical bilateral pneumonia, possible viral organisms Acute electrolyte derangementhyponatremia, hypochloremia, hyperkalemia suggestive of volume depletion ELSA due to vasomotor nephropathy Thrombocytopenia, concerning for ITP Small abdominal pelvic ascites with mesenteric edema. Ill-defined hypodense mass within the right hepatic lobe Nonobstructing intrarenal calculi Increased bulky mediastinal, hilar and axillary lymphadenopathy, concerning for malignancy such as lymphoma or metastasis. Increased splenomegaly. small left lower lobe pulmonary nodule Pending ID evaluation. Pending CEA and AFP levels Pending copper levels Pulmonary consult O2 supplementation to maintain O2 saturations greater than 90% Continue empiric IV antibiotics Pending Legionella urine antigen and MRSA Continue IV fluids IV electrolyte replacement as needed Avoid nephrotoxic agents Strict I's/O and monitor urine output Hematology consult Will start on prednisone 40 mg twice daily Trend platelets daily Clobetasol cream for his psoriasis Pending HIV and hepatitis panel Lovenox for DVT prophylaxis Regular diet CODE STATUS full Discussed with RN and SW Disposition inpatient management as above DPOA: Undesignated History of Present Illness History of Present Illness 46-year-old male with past medical history of chcf psoriasis and sinusitis since May who presents to [facility] ER for flulike symptoms and a rash since last Monday. Apparently, he was admitted in February 2020 for respiratory failure but he was both influenza and Covid negative at that time. Patient has also been dealing with sinusitis since May is ever since he stopped taking Cosentyx for his psoriasis. He has been on 3 different antibiotics and he says that his last CT showed acute on chronic sinusitis. Patient does report yellow sputum production and postnasal drip and cough. He also reports that his fevers on Monday was up to 103. He also describes his rash is starting in his upper extremities and his chest which is dark red and there is some itchiness. Patient denies any chills, abdominal pain, bloody stools, dysuria, chest pain or syncope or palpitations. 08/17/2021 No acute events overnight. Patient seen examined bedside. Still requiring 6 L nasal cannula of oxygen still saturating 96%. No other explanations for his hypoxia. Patient complains of chest tightness and nasal congestion. Does not really explain his hypoxia. Will obtain CT chest to rule out PE. Hematology evaluation still pending. Labs still pending. Tolerating prednisone well and progression of rash has stopped. Patient's chart, labs, images were reviewed and discussed with RN 08/19/2021 No acute events overnight. Patient seen examined bedside. AF and VSS. Saturating 4 L nasal cannula O2 saturating well. Pending axillary lymph node biopsy. Concerning for lymphoma. Pending MRI of the liver for hypodense lesion seen on CT. Patient's chart, labs, images were reviewed and discussed with RN Vitals/I&O Vitals/I&O: Vital Signs Date Time Temp Pulse Resp B/P (MAP) Pulse Ox O2 Delivery O2 Flow Rate FiO2 08/19/21 10:15 54 18 133/86 (102) 97 Room Air 08/19/21 08:00 4.0 08/19/21 07:00 98.1 98.1 I & O 08/18/21 08/18/21 08/19/21 15:00 23:00 07:00 Intake Total 800 ml 0 ml Output Total 1 ml Balance 799 ml 0 ml Physical Exam General: Alert, Oriented X3, Cooperative Heart: Regular rate Lungs: Clear Abdomen: Normal bowel sounds Extremities: No clubbing Skin: No rashes Labs Labs: Laboratory Tests Test 08/19/21 03:00 White Blood Count 10.7 x10^3/uL (4.0-11.0) Red Blood Count 5.49 x10^6/uL (4.30-5.70) Hemoglobin 13.6 g/dL (13.0-17.5) Hematocrit 42.1 % (39.0-53.0) Mean Corpuscular Volume 77 fL (79-100) Mean Corpuscular Hemoglobin 25 pg (25-35) Mean Corpuscular Hemoglobin Concent 32 g/dL (31-37) Red Cell Distribution Width 14.8 % (11.5-14.5) Platelet Count 97 x10^3/uL (140-400) Neutrophils (%) (Auto) 71 % (31-73) Lymphocytes (%) (Auto) 20 % (24-48) Monocytes (%) (Auto) 8 % (0-9) Eosinophils (%) (Auto) 1 % (0-3) Basophils (%) (Auto) 1 % (0-3) Neutrophils # (Auto) 7.6 x10^3/uL (1.8-7.7) Lymphocytes # (Auto) 2.1 x10^3/uL (1.0-4.8) Monocytes # (Auto) 0.8 x10^3/uL (0.0-1.1) Eosinophils # (Auto) 0.1 x10^3/uL (0.0-0.7) Basophils # (Auto) 0.1 x10^3/uL (0.0-0.2) Sodium Level 136 mmol/L (136-145) Potassium Level 4.8 mmol/L (3.5-5.1) Chloride Level 101 mmol/L (98-107) Carbon Dioxide Level 30 mmol/L (21-32) Anion Gap 5 (6-14) Blood Urea Nitrogen 19 mg/dL (8-26) Creatinine 1.1 mg/dL (0.7-1.3) Estimated GFR (Cockcroft-Gault) 71.4 Glucose Level 125 mg/dL (70-99) Calcium Level 8.9 mg/dL (8.5-10.1) Magnesium Level 2.2 mg/dL (1.8-2.4) Comment Review of Relevant I have reviewed the following items carlito (where applicable) has been applied. Medications: Current Medications Medications (Trade) Dose Ordered Sig/Gabe Route PRN Reason Start Time Stop Time Status Last Admin Dose Admin Lidocaine HCl (Buffered Lidocaine 1%) 3 ml 1X ONCE IJ 08/19/21 09:45 08/19/21 09:50 DC 08/19/21 09:55 Justifications for Admission Other Justification Pneumonia and thrombocytopenia LEIGH ANN MARTÍNEZ MD Aug 19, 2021 12:13
--- NOTE | 2021-08-19 12:39 | RAD ---
Ultrasound-guided biopsy, left axillary adenopathy 08/19/2021 INDICATION: Left axillary adenopathy. Mediastinal adenopathy. Unknown etiology. Sarcoidosis versus ly mphoma. Consent: The procedure was explained in its entirety to the patient or the patients designated repres entative by a member of the treatment team, including a discussion of the risks, benefits and commonl y accepted alternatives to the procedure, as well as the expected consequences of no therapy whatsoev er. Discussion of the risks included, but was not limited to, those that are most frequent and thos e that are rare but possibly severe or life-threatening, as well as the possibility of unforeseen com plications. Procedural detail: The left axilla was prepped and draped using sterile barrier technique. 1% lidocai ne was administered for local anesthesia. Ultrasound evaluation demonstrates multiple abnormal lymph nodes in the left axilla. These were targeted for biopsy. 18-gauge core samples of the lymph nodes we re obtained divided amongst formalin and RPMI fluid. The needle was removed. Manual pressure was held . No immediate complication was identified. Sterile dressings were applied. IMPRESSION: Ultrasound-guided biopsy, abnormal left axillary lymph nodes Electronically signed by: Jas Davis MD (08/19/2021 12:37 PM) [id number]
--- NOTE | 2021-08-19 14:25 | CONS ---
DATE OF CONSULTATION: 08/19/2021 REQUESTING PHYSICIAN: Dr. Weaver. REASON FOR CONSULTATION: Rash and has had fever. HISTORY OF PRESENT ILLNESS: This is a 46-year-old gentleman who has been admitted with broke out in rash. The rash apparently started 2 weeks or so ago. The patient does have psoriasis and he was on Cosentyx, which he has not taken since May. The patient has been suffering with sinus congestion and infection for at least 5 months, has had 3 rounds of antibiotics. The patient also has been having cough and chest congestion for 6 months. Before coming in, he said he had 103 fever, although there is no fever documented since he is here. The patient denies any weight loss. Denies any nausea, vomiting, diarrhea. Denies any abdominal pain, urinary symptoms, headache or visual symptoms. PAST MEDICAL HISTORY: Positive for above-mentioned respiratory symptoms for a long time at least 6 months, sinus symptoms for 5 months. He has history of prior mediastinal hilar adenopathy, psoriasis with immune-modulating drug Cosentyx, which he has not taken since May. SOCIAL HISTORY: Negative for smoking, alcohol or illicit drug use. The patient is in the . The patient has traveled extensively into multiple countries, originally from [place]. ALLERGIES: LISTED ALLERGIC TO BLUE DYE, IBUPROFEN AND RED DYE. CURRENT MEDICATIONS: The patient is on Zosyn. REVIEW OF SYSTEMS: As in HPI. All other systems reviewed are negative. PHYSICAL EXAMINATION: GENERAL: Alert, oriented gentleman, not in distress. VITAL SIGNS: Stable, afebrile. HEENT: NAD. NECK: Supple, no JVP, no lymphadenopathy. LUNGS: Clear. HEART: S1, S2, regular. ABDOMEN: Benign. EXTREMITIES: No edema, cyanosis. SKIN: The patient does have extensive psoriatic rash present. He may have had a different rash other than his psoriasis, it is hard to say. There is no mucous membrane involved. There is no blistering. LABORATORY DATA: White count is normal at 10.7, it was 13.3 yesterday, but when he came in, it was normal. Platelets are 97,000. BUN and creatinine is normal. LDH is 358. Ferritin is 612. Nasal MRSA negative. IgG 0.60, IgM less than 30. Urine legionella negative. HIV antibody screen negative. Hepatitis screen negative. CT chest showed increased bulky mediastinal, hilar and axillary lymphadenopathy, splenomegaly, mild septal thickening with ground-glass opacity, tiny pleural effusion, small left lower lobe pulmonary nodule. Abdominal CT showed ill-defined hypodense mass within the right hepatic lobe, mildly enlarged abdominal pelvic lymph nodes. IMPRESSION: 1. History of fever, which has not had any since year. 2. Psoriasis with extensive rash. 3. Hilar mediastinal and axillary. Lymph node biopsy from the axilla has been done. May need a hepatic lobe biopsy if there is no answer on to the OR lymph node biopsy. Would do the infection workup, although appears to be more likely the patient may have lymphoma or malignancy rather than infection. Again, being on Cosentyx if possible. Thank you very much, Dr. Weaver, for giving me opportunity to participate in this patient's care. SARA DR: Yuniel TID: [id number]
[2021-08-19] MEDS: diphenhydrAMINE 50 MG/ML VIAL IVP PRN (22:01)
[2021-08-19] MEDS: guaiFENesin/CODEINE 100mg/10mg 5 ML LIQUID PO PRN (22:01)
[2021-08-20 03:00] VITALS: BP 156/92
[2021-08-20] MEDS: guaiFENesin/CODEINE 100mg/10mg 5 ML LIQUID PO PRN ×2 (05:52→23:03)
[2021-08-20] MEDS: diphenhydrAMINE 50 MG/ML VIAL IVP PRN ×2 (05:52→23:04)
[2021-08-20] MEDS: PIPERACILLIN/TAZOBACTAM 3.375 GM in IV NORMAL SALINE 50ML 50 ML IV SCH ×2 (05:52→12:49)
[2021-08-20 07:00] VITALS: BP 132/89
[2021-08-20] MEDS: CLOBETASOL EMOLLIENT 0.05% TOPICAL CREAM 15GM TUBE. TP SCH ×2 (08:37→20:54)
[2021-08-20] MEDS: BENZONATATE 100 MG CAPSULE. PO SCH ×3 (08:37→20:51)
[2021-08-20] MEDS: predniSONE 20 MG TABLET PO SCH ×2 (08:37→20:51)
--- NOTE | 2021-08-20 09:15 | PDOC ---
[employer] PROGRESS NOTE Date of Service DOS: DATE: 08/20/21 TIME: 09:14 Chief Complaint Chief Complaint Assessment/Plan Acute hypoxic respiratory failure Atypical bilateral pneumonia, possible viral organisms Acute electrolyte derangementhyponatremia, hypochloremia, hyperkalemia suggestive of volume depletion ELSA due to vasomotor nephropathy Thrombocytopenia, concerning for ITP Small abdominal pelvic ascites with mesenteric edema. Ill-defined hypodense mass within the right hepatic lobe Nonobstructing intrarenal calculi Increased bulky mediastinal, hilar and axillary lymphadenopathy, concerning for malignancy such as lymphoma or metastasis, s/p Axillary LN Bx 08/19/21 Increased splenomegaly. small left lower lobe pulmonary nodule Pending ID evaluation. Pending CEA and AFP levels Pending copper levels Pulmonary consult O2 supplementation to maintain O2 saturations greater than 90% Continue empiric IV antibiotics Pending Legionella urine antigen and MRSA Continue IV fluids IV electrolyte replacement as needed Avoid nephrotoxic agents Strict I's/O and monitor urine output Hematology consult Will start on prednisone 40 mg twice daily Trend platelets daily Clobetasol cream for his psoriasis Pending HIV and hepatitis panel Lovenox for DVT prophylaxis Regular diet CODE STATUS full Discussed with RN and SW Disposition inpatient management as above DPOA: Undesignated History of Present Illness History of Present Illness 46-year-old male with past medical history of correction psoriasis and sinusitis since May who presents to [facility] ER for flulike symptoms and a rash since last Monday. Apparently, he was admitted in February 2020 for respiratory failure but he was both influenza and Covid negative at that time. Patient has also been dealing with sinusitis since May is ever since he stopped taking Cosentyx for his psoriasis. He has been on 3 different antibiotics and he says that his last CT showed acute on chronic sinusitis. Patient does report yellow sputum production and postnasal drip and cough. He also reports that his fevers on Monday was up to 103. He also describes his rash is starting in his upper extremities and his chest which is dark red and there is some itchiness. Patient denies any chills, abdominal pain, bloody stools, dysuria, chest pain or syncope or palpitations. 08/17/2021 No acute events overnight. Patient seen examined bedside. Still requiring 6 L nasal cannula of oxygen still saturating 96%. No other explanations for his hypoxia. Patient complains of chest tightness and nasal congestion. Does not really explain his hypoxia. Will obtain CT chest to rule out PE. Hematology evaluation still pending. Labs still pending. Tolerating prednisone well and progression of rash has stopped. Patient's chart, labs, images were reviewed and discussed with RN 08/19/2021 No acute events overnight. Patient seen examined bedside. AF and VSS. Saturating 4 L nasal cannula O2 saturating well. Pending axillary lymph node biopsy. Concerning for lymphoma. Pending MRI of the liver for hypodense lesion seen on CT. Patient's chart, labs, images were reviewed and discussed with RN 08/20/21 No acute events overnight. AF and VSS. Tolerating 4L NC. Rash is not progressing but slowly resolving. Pending pathology results from Axillary LN Bx. Vitals/I&O Vitals/I&O: Vital Signs Date Time Temp Pulse Resp B/P (MAP) Pulse Ox O2 Delivery O2 Flow Rate FiO2 08/20/21 07:00 97.7 52 20 132/89 (103) 98 Nasal Cannula 4.0 97.7 I & O 08/19/21 08/19/21 08/20/21 15:00 23:00 07:00 Intake Total 590 ml 120 ml Balance 590 ml 120 ml Physical Exam General: Alert, Oriented X3, Cooperative Heart: Regular rate Lungs: Clear Abdomen: Normal bowel sounds Extremities: No clubbing Skin: No rashes Comment Review of Relevant I have reviewed the following items carlito (where applicable) has been applied. Medications: Current Medications Medications (Trade) Dose Ordered Sig/Gabe Route PRN Reason Start Time Stop Time Status Last Admin Dose Admin Lidocaine HCl (Buffered Lidocaine 1%) 3 ml 1X ONCE IJ 08/19/21 09:45 08/19/21 09:50 DC 08/19/21 09:55 Justifications for Admission Other Justification Pneumonia and thrombocytopenia LEIGH ANN MARTÍNEZ MD Aug 20, 2021 09:15
--- NOTE | 2021-08-20 09:36 | PDOC ---
PULMONARY PROGRESS NOTES DATE: 08/20/21 TIME: 09:33 Subjective Patient feels better. Complains of less cough and less nasal congestion. Status post axillary lymph node biopsy. Vitals Vital Signs Date Time Temp Pulse Resp B/P (MAP) Pulse Ox O2 Delivery O2 Flow Rate FiO2 08/20/21 07:00 97.7 52 20 132/89 (103) 98 Nasal Cannula 4.0 97.7 General: Alert, No acute distress Lungs: Clear Cardiovascular: S1 Abdomen: Soft, Non-tender Extremities: No Edema, Other (Psoriatic lesions and rash, improving.) Labs Laboratory Tests Test 08/19/21 03:00 White Blood Count 10.7 x10^3/uL (4.0-11.0) Red Blood Count 5.49 x10^6/uL (4.30-5.70) Hemoglobin 13.6 g/dL (13.0-17.5) Hematocrit 42.1 % (39.0-53.0) Mean Corpuscular Volume 77 fL (79-100) Mean Corpuscular Hemoglobin 25 pg (25-35) Mean Corpuscular Hemoglobin Concent 32 g/dL (31-37) Red Cell Distribution Width 14.8 % (11.5-14.5) Platelet Count 97 x10^3/uL (140-400) Neutrophils (%) (Auto) 71 % (31-73) Lymphocytes (%) (Auto) 20 % (24-48) Monocytes (%) (Auto) 8 % (0-9) Eosinophils (%) (Auto) 1 % (0-3) Basophils (%) (Auto) 1 % (0-3) Neutrophils # (Auto) 7.6 x10^3/uL (1.8-7.7) Lymphocytes # (Auto) 2.1 x10^3/uL (1.0-4.8) Monocytes # (Auto) 0.8 x10^3/uL (0.0-1.1) Eosinophils # (Auto) 0.1 x10^3/uL (0.0-0.7) Basophils # (Auto) 0.1 x10^3/uL (0.0-0.2) Sodium Level 136 mmol/L (136-145) Potassium Level 4.8 mmol/L (3.5-5.1) Chloride Level 101 mmol/L (98-107) Carbon Dioxide Level 30 mmol/L (21-32) Anion Gap 5 (6-14) Blood Urea Nitrogen 19 mg/dL (8-26) Creatinine 1.1 mg/dL (0.7-1.3) Estimated GFR (Cockcroft-Gault) 71.4 Glucose Level 125 mg/dL (70-99) Calcium Level 8.9 mg/dL (8.5-10.1) Magnesium Level 2.2 mg/dL (1.8-2.4) Medications Active Scripts Medications Dose Route/Sig Max Daily Dose Days Date Category Proair Hfa Inhaler (Albuterol Sulfate) 8.5 Gm Hfa.aer.ad 2 Puff IH Q4HRS PRN 21 08/15/21 Reported Impression . IMPRESSION: 1. Acute hypoxic respiratory failure requiring 6 liters of oxygen due to suspected pneumonitis. He has been battling with upper and lower respiratory tract symptoms since last year after he had COVID vaccine. He has also been on Cosentyx for psoriasis. This can contribute to respiratory tract infections.. He could be at possible risk for lymphoma related to drug. 2. Abnormal CT chest with increase in mediastinal, hilar and axillary lymphadenopathy along with splenomegaly and ascites. The clinical picture is suspicious for lymphoma. Possibility of mycosis fungoides/cutaneous T-cell lymphoma is also concerning, less likely Sarcoidosis. 3. No significant tobacco history. 4. Thrombocytopenia. This is associated with a rash. Could be ITP versus mycosis fungoides/cutaneous T-cell lymphoma vs related to hypersplenism . Lovenox on hold. as well. 5. Mild leukocytosis. 6. Acute sinusitis and possible mild pneumonitis. . Plan . RECOMMENDATIONS: 1. Continued present oxygen to keep saturation 94% and above. 2. Continue with oral steroids. 3. Continue with Zosyn. 4. Appreciate infectious disease recommendations 5. Holding Lovenox until thrombocytopenia has resolved. 7. Status post axillary lymph node biopsy. We will follow the results. 8. We would recommend MRI of the liver lesion to rule out any mass. 9. Discussed with RN and Dr Hanson and the patient . BARBARA ENRIQUE MD Aug 20, 2021 09:36
[2021-08-20 11:00] VITALS: BP 132/80
[2021-08-20] MEDS: IV NORMAL SALINE 1000ML BAG 1,000 ML IV SCH ×2 (12:50→23:03)
--- NOTE | 2021-08-20 12:54 | PDOC ---
Infectious Disease Note Subjective Subjective Patient is feeling good rash is improved ROS ROS No nausea vomiting diarrhea chest pain shortness of breath or fever Vital Sign Vital Signs Vital Signs Date Time Temp Pulse Resp B/P (MAP) Pulse Ox O2 Delivery O2 Flow Rate FiO2 08/20/21 07:00 97.7 52 20 132/89 (103) 98 Nasal Cannula 4.0 97.7 Physical Exam PHYSICAL EXAM GENERAL: Alert, oriented gentleman, not in distress. VITAL SIGNS: Stable, afebrile. HEENT: NAD. NECK: Supple, no JVP, no lymphadenopathy. LUNGS: Clear. HEART: S1, S2, regular. ABDOMEN: Benign. EXTREMITIES: No edema, cyanosis. SKIN: The patient does have extensive psoriatic rash present. He may have had a different rash other than his psoriasis, it is hard to say. There is no mucous membrane involved. There is no blistering. Objective Assessment IMPRESSION: 1. History of fever, which has not had any since year. 2. Psoriasis with extensive rash. 3. Hilar mediastinal and axillary. Lymph node biopsy from the axilla has been done. May need a hepatic lobe biopsy if there is no answer on to the OR lymph node biopsy. Plan Plan of Care Zosyn can be discontinued Preliminary report on axillary biopsy not showing any lymphoma or malignancy but flow cytometry is pending If no answer with axillary biopsy then we may have to do mediastinal biopsy and or liver mass biopsy Also I would do fungal cultures and AFB cultures JYOTI CONDE MD Aug 20, 2021 12:54
[2021-08-20 14:12] LABS: CEA 1.7 ng/mL (0.0-4.7)
[2021-08-20 15:00] VITALS: BP 159/88
[2021-08-20 19:00] VITALS: BP 133/86
[2021-08-20 23:00] VITALS: BP 150/82
[2021-08-21 03:00] VITALS: BP 137/71
[2021-08-21 07:00] VITALS: BP 132/93
[2021-08-21] MEDS: predniSONE 20 MG TABLET PO SCH ×2 (08:24→20:26)
[2021-08-21] MEDS: BENZONATATE 100 MG CAPSULE. PO SCH ×3 (08:24→20:20)
[2021-08-21] MEDS: CLOBETASOL EMOLLIENT 0.05% TOPICAL CREAM 15GM TUBE. TP SCH ×2 (08:25→20:19)
--- NOTE | 2021-08-21 09:00 | NUR ---
PATIENT SLEEPING AT THIS TIME AND TOO GROGGY TO TAKE AM. MEDICATIONS, WILL RETRY LATER.
--- NOTE | 2021-08-21 09:25 | PDOC ---
PULMONARY PROGRESS NOTES DATE: 08/21/21 TIME: 09:21 Subjective Patient is resting comfortably in bed on 2 L nasal cannula, denies any shortness of breath, cough, afebrile, no overnight concerns from nursing, rash appears to be subsiding Vitals Vital Signs Date Time Temp Pulse Resp B/P (MAP) Pulse Ox O2 Delivery O2 Flow Rate FiO2 08/21/21 08:00 Nasal Cannula 2.0 08/21/21 07:00 97.1 54 19 132/93 (106) 96 97.1 ROS: No Nausea, No Chest Pain, No Abdominal Pain, No Increase Cough General: Alert, Oriented X4, No acute distress Lungs: Clear Cardiovascular: S1 Abdomen: Soft, Non-tender Extremities: No Edema, Other (Psoriatic lesions and rash, improving.) Medications Active Scripts Medications Dose Route/Sig Max Daily Dose Days Date Category Proair Hfa Inhaler (Albuterol Sulfate) 8.5 Gm Hfa.aer.ad 2 Puff IH Q4HRS PRN 21 08/15/21 Reported Impression . IMPRESSION: 1. Acute hypoxic respiratory failure requiring 6 liters of oxygen due to suspected pneumonitis. He has been battling with upper and lower respiratory tract symptoms since last year after he had COVID vaccine. He has also been on Cosentyx for psoriasis. This can contribute to respiratory tract infections.. He could be at possible risk for lymphoma related to drug. 2. Abnormal CT chest with increase in mediastinal, hilar and axillary lymphadenopathy along with splenomegaly and ascites. The clinical picture is suspicious for lymphoma. Possibility of mycosis fungoides/cutaneous T-cell lymphoma is also concerning, less likely Sarcoidosis. 3. No significant tobacco history. 4. Thrombocytopenia. This is associated with a rash. Could be ITP versus mycosis fungoides/cutaneous T-cell lymphoma vs related to hypersplenism . Lovenox on hold. as well. 5. Mild leukocytosis.--Resolved 6. Acute sinusitis and possible mild pneumonitis. . Plan . Updated 08/21/2021 Continue supplemental oxygen, keep oxygen saturations greater than 94%, wean as tolerated, currently on 2 L nasal cannula Bronchodilators Follow infectious disease recommendations in regards to antibiotic therapy Status post axillary lymph node biopsy, follow pathology Patient may benefit from skin biopsy Patient will need outpatient ENT follow-up Would recommend MRI of liver lesion to rule out any mass DVT/GI prophylaxis Discussed with RN RECOMMENDATIONS: 1. Continued present oxygen to keep saturation 94% and above. 2. Continue with oral steroids. 3. Continue with Zosyn. 4. Appreciate infectious disease recommendations 5. Holding Lovenox until thrombocytopenia has resolved. 7. Status post axillary lymph node biopsy. We will follow the results. 8. We would recommend MRI of the liver lesion to rule out any mass. 9. Discussed with RN and Dr Hanson and the patient . BARBARA ENRIQUE MD Aug 21, 2021 09:25
[2021-08-21 11:00] VITALS: BP 147/88
--- NOTE | 2021-08-21 12:10 | NUR ---
INTERNET SALES ASSOCIATE REPORTED TO THIS BLADE WORKER THAT THE PATIENT WAS POCKETING FOOD AND NEEDED LOTS OF CUEING BEFORE SWALLOWING, WILL HOLD AM MEDICATIONS., PATIENT CONTINUES TO SLEEP AT THIS TIME BUT AROUSES TO VERBAL/TACTILE STIMULI.
[2021-08-21] MEDS: IV NORMAL SALINE 1000ML BAG 1,000 ML IV SCH (13:20)
[2021-08-21 15:00] VITALS: BP 137/83
[2021-08-21 19:47] VITALS: BP 143/92
[2021-08-21] MEDS: diphenhydrAMINE 50 MG/ML VIAL IVP PRN (22:00)
[2021-08-21] MEDS: guaiFENesin/CODEINE 100mg/10mg 5 ML LIQUID PO PRN (22:00)
[2021-08-21 23:36] VITALS: BP 144/93
[2021-08-22] MEDS: IV NORMAL SALINE 1000ML BAG 1,000 ML IV SCH ×2 (01:56→16:59)
[2021-08-22 03:28] VITALS: BP 126/88
[2021-08-22 07:00] VITALS: BP 131/96
[2021-08-22] MEDS: BENZONATATE 100 MG CAPSULE. PO SCH ×3 (09:39→21:59)
[2021-08-22] MEDS: predniSONE 20 MG TABLET PO SCH ×2 (09:39→21:59)
[2021-08-22] MEDS: CLOBETASOL EMOLLIENT 0.05% TOPICAL CREAM 15GM TUBE. TP SCH ×2 (09:39→21:59)
[2021-08-22 11:00] VITALS: BP 133/81
--- NOTE | 2021-08-22 11:25 | PDOC ---
[employer] PROGRESS NOTE Date of Service DOS: DATE: 08/22/21 TIME: 11:24 Chief Complaint Chief Complaint Assessment/Plan Acute hypoxic respiratory failure Atypical bilateral pneumonia, possible viral organisms Acute electrolyte derangementhyponatremia, hypochloremia, hyperkalemia suggestive of volume depletion ELSA due to vasomotor nephropathy Thrombocytopenia, concerning for ITP Small abdominal pelvic ascites with mesenteric edema. Ill-defined hypodense mass within the right hepatic lobe Nonobstructing intrarenal calculi Increased bulky mediastinal, hilar and axillary lymphadenopathy, concerning for malignancy such as lymphoma or metastasis, s/p Axillary LN Bx 08/19/21 Increased splenomegaly. small left lower lobe pulmonary nodule Pending ID evaluation. Pending CEA and AFP levels Pending copper levels Pulmonary consult O2 supplementation to maintain O2 saturations greater than 90% Continue empiric IV antibiotics Pending Legionella urine antigen and MRSA Continue IV fluids IV electrolyte replacement as needed Avoid nephrotoxic agents Strict I's/O and monitor urine output Hematology consult Will start on prednisone 40 mg twice daily Trend platelets daily Clobetasol cream for his psoriasis Pending HIV and hepatitis panel Lovenox for DVT prophylaxis Regular diet CODE STATUS full Discussed with RN and SW Disposition inpatient management as above DPOA: Undesignated History of Present Illness History of Present Illness 46-year-old male with past medical history of correction psoriasis and sinusitis since May who presents to [facility] ER for flulike symptoms and a rash since last Monday. Apparently, he was admitted in February 2020 for respiratory failure but he was both influenza and Covid negative at that time. Patient has also been dealing with sinusitis since May is ever since he stopped taking Cosentyx for his psoriasis. He has been on 3 different antibiotics and he says that his last CT showed acute on chronic sinusitis. Patient does report yellow sputum production and postnasal drip and cough. He also reports that his fevers on Monday was up to 103. He also describes his rash is starting in his upper extremities and his chest which is dark red and there is some itchiness. Patient denies any chills, abdominal pain, bloody stools, dysuria, chest pain or syncope or palpitations. 08/17/2021 No acute events overnight. Patient seen examined bedside. Still requiring 6 L nasal cannula of oxygen still saturating 96%. No other explanations for his hypoxia. Patient complains of chest tightness and nasal congestion. Does not really explain his hypoxia. Will obtain CT chest to rule out PE. Hematology evaluation still pending. Labs still pending. Tolerating prednisone well and progression of rash has stopped. Patient's chart, labs, images were reviewed and discussed with RN 08/19/2021 No acute events overnight. Patient seen examined bedside. AF and VSS. Saturating 4 L nasal cannula O2 saturating well. Pending axillary lymph node biopsy. Concerning for lymphoma. Pending MRI of the liver for hypodense lesion seen on CT. Patient's chart, labs, images were reviewed and discussed with RN 08/20/21 No acute events overnight. AF and VSS. Tolerating 4L NC. Rash is not progressing but slowly resolving. Pending pathology results from Axillary LN Bx. 08/22/2021 No acute events overnight. Patient seen examined bedside. Rash resolving. Pending pathology results. Antibiotics have been discontinued. Continue with steroids. Patient's chart, labs, images were reviewed and discussed with RN Vitals/I&O Vitals/I&O: Vital Signs Date Time Temp Pulse Resp B/P (MAP) Pulse Ox O2 Delivery O2 Flow Rate FiO2 08/22/21 07:00 97.3 58 20 131/96 (108) 96 Nasal Cannula 2.0 97.3 I & O 08/21/21 08/21/21 08/22/21 15:00 23:00 07:00 Intake Total 1000 ml 200 ml Balance 1000 ml 200 ml Physical Exam Physical Exam: GENERAL: Alert, oriented gentleman, not in distress. VITAL SIGNS: Stable, afebrile. HEENT: NAD. NECK: Supple, no JVP, no lymphadenopathy. LUNGS: Clear. HEART: S1, S2, regular. ABDOMEN: Benign. EXTREMITIES: No edema, cyanosis. SKIN: The patient does have extensive psoriatic rash present. He may have had a different rash other than his psoriasis, it is hard to say. There is no mucous membrane involved. There is no blistering. General: Alert, Oriented X3, Cooperative Heart: Regular rate Lungs: Clear Abdomen: Normal bowel sounds Extremities: No clubbing Skin: No rashes Comment Review of Relevant I have reviewed the following items carlito (where applicable) has been applied. Justifications for Admission Other Justification Pneumonia and thrombocytopenia LEIGH ANN MARTÍNEZ MD Aug 22, 2021 11:25
--- NOTE | 2021-08-22 11:32 | PDOC ---
Infectious Disease Note Subjective Subjective Patient is feeling good rash is improved ROS ROS no n/v/d/ Vital Sign Vital Signs Vital Signs Date Time Temp Pulse Resp B/P (MAP) Pulse Ox O2 Delivery O2 Flow Rate FiO2 08/22/21 07:00 97.3 58 20 131/96 (108) 96 Nasal Cannula 2.0 97.3 Physical Exam PHYSICAL EXAM GENERAL: Alert, oriented gentleman, not in distress. VITAL SIGNS: Stable, afebrile. HEENT: NAD. NECK: Supple, no JVP, no lymphadenopathy. LUNGS: Clear. HEART: S1, S2, regular. ABDOMEN: Benign. EXTREMITIES: No edema, cyanosis. SKIN: The patient does have extensive psoriatic rash present. He may have had a different rash other than his psoriasis, it is hard to say. There is no mucous membrane involved. There is no blistering. Objective Assessment IMPRESSION: 1. History of fever, which has not had any since year. 2. Psoriasis with extensive rash. 3. Hilar mediastinal and axillary. Lymph node biopsy from the axilla has been done. May need a hepatic lobe biopsy if there is no answer on to the OR lymph node biopsy. Plan Plan of Care Zosyn can be discontinued Preliminary report on axillary biopsy not showing any lymphoma or malignancy but flow cytometry is pending If no answer with axillary biopsy then we may have to do mediastinal biopsy and or liver mass biopsy Also I would do fungal cultures and AFB cultures JYOTI CONDE MD Aug 22, 2021 11:32
[2021-08-22 15:00] VITALS: BP 140/78
[2021-08-22] MEDS ORDERED: BENZ-8 PO (15:51)
[2021-08-22] MEDS ORDERED: CLOB15CR27 TP (15:51)
--- NOTE | 2021-08-22 15:52 | DISCH ---
DISCHARGE INSTRUCTIONS Condition on Discharge Condition on Discharge: Stable Activity After Discharge Activity Instructions for Disc: Activity as tolerated Exercise Instruction after Dis: Walk 30 min, 5 x per week Driving Instructions after Dis: Do not drive today Diet after Discharge Diet after Discharge: Cardiac Follow-Up Follow up with: Oncology as soon as possible for pathology results Follow Up With: PCP within 2 weeks of discharge LEIGH ANN MARTÍNEZ MD Aug 22, 2021 15:52
[2021-08-22 19:47] VITALS: BP 139/96
[2021-08-22] MEDS: diphenhydrAMINE 50 MG/ML VIAL IVP PRN (21:59)
[2021-08-22] MEDS: guaiFENesin/CODEINE 100mg/10mg 5 ML LIQUID PO PRN (22:00)
[2021-08-22 23:05] VITALS: BP 141/91
[2021-08-23 03:12] VITALS: BP 139/93
[2021-08-23] MEDS: IV NORMAL SALINE 1000ML BAG 1,000 ML IV SCH ×2 (05:20→17:16)
[2021-08-23 07:00] VITALS: BP 126/84
[2021-08-23] MEDS: BENZONATATE 100 MG CAPSULE. PO SCH ×3 (08:33→20:36)
[2021-08-23] MEDS: predniSONE 20 MG TABLET PO SCH ×2 (08:33→20:36)
[2021-08-23] MEDS: CLOBETASOL EMOLLIENT 0.05% TOPICAL CREAM 15GM TUBE. TP SCH ×2 (08:34→21:49)
--- NOTE | 2021-08-23 10:41 | PDOC ---
[employer] PROGRESS NOTE Date of Service DOS: DATE: 08/23/21 TIME: 10:38 Chief Complaint Chief Complaint Assessment/Plan Acute hypoxic respiratory failure Atypical bilateral pneumonia, possible viral organisms Acute electrolyte derangementhyponatremia, hypochloremia, hyperkalemia suggestive of volume depletion ELSA due to vasomotor nephropathy Thrombocytopenia, concerning for ITP Small abdominal pelvic ascites with mesenteric edema. Ill-defined hypodense mass within the right hepatic lobe Nonobstructing intrarenal calculi Increased bulky mediastinal, hilar and axillary lymphadenopathy, concerning for malignancy such as lymphoma or metastasis, s/p Axillary LN Bx 08/19/21 Increased splenomegaly. small left lower lobe pulmonary nodule Pending ID evaluation. Pending CEA and AFP levels Pending copper levels Pulmonary consult O2 supplementation to maintain O2 saturations greater than 90% Continue empiric IV antibiotics Pending Legionella urine antigen and MRSA Continue IV fluids IV electrolyte replacement as needed Avoid nephrotoxic agents Strict I's/O and monitor urine output Hematology consult Will start on prednisone 40 mg twice daily Trend platelets daily Clobetasol cream for his psoriasis Pending HIV and hepatitis panel Lovenox for DVT prophylaxis Regular diet CODE STATUS full Discussed with RN and SW Disposition inpatient management as above DPOA: Undesignated History of Present Illness History of Present Illness 46-year-old male with past medical history of nursing home psoriasis and sinusitis since May who presents to [facility] ER for flulike symptoms and a rash since last Monday. Apparently, he was admitted in February 2020 for respiratory failure but he was both influenza and Covid negative at that time. Patient has also been dealing with sinusitis since May is ever since he stopped taking Cosentyx for his psoriasis. He has been on 3 different antibiotics and he says that his last CT showed acute on chronic sinusitis. Patient does report yellow sputum production and postnasal drip and cough. He also reports that his fevers on Monday was up to 103. He also describes his rash is starting in his upper extremities and his chest which is dark red and there is some itchiness. Patient denies any chills, abdominal pain, bloody stools, dysuria, chest pain or syncope or palpitations. 08/17/2021 No acute events overnight. Patient seen examined bedside. Still requiring 6 L nasal cannula of oxygen still saturating 96%. No other explanations for his hypoxia. Patient complains of chest tightness and nasal congestion. Does not really explain his hypoxia. Will obtain CT chest to rule out PE. Hematology evaluation still pending. Labs still pending. Tolerating prednisone well and progression of rash has stopped. Patient's chart, labs, images were reviewed and discussed with RN 08/19/2021 No acute events overnight. Patient seen examined bedside. AF and VSS. Saturating 4 L nasal cannula O2 saturating well. Pending axillary lymph node biopsy. Concerning for lymphoma. Pending MRI of the liver for hypodense lesion seen on CT. Patient's chart, labs, images were reviewed and discussed with RN 08/20/21 No acute events overnight. AF and VSS. Tolerating 4L NC. Rash is not progressing but slowly resolving. Pending pathology results from Axillary LN Bx. 08/22/2021 No acute events overnight. Patient seen examined bedside. Rash resolving. Pending pathology results. Antibiotics have been discontinued. Continue with steroids. Patient's chart, labs, images were reviewed and discussed with RN 08/23 Evaluated examined at bedside. Confusion if MRI can be completed inpatient or not. Either way waiting for fungal acid-fast cultures. Further pending pat hology results. If we can clarify this may be able to discharge today or tomorrow,. Vitals/I&O Vitals/I&O: Vital Signs Date Time Temp Pulse Resp B/P (MAP) Pulse Ox O2 Delivery O2 Flow Rate FiO2 08/23/21 08:15 Nasal Cannula 2.0 08/23/21 07:00 98.4 60 19 126/84 (98) 95 98.4 I & O 08/22/21 08/22/21 08/23/21 15:00 23:00 07:00 Intake Total 440 ml 1220 ml 300 ml Balance 440 ml 1220 ml 300 ml Physical Exam Physical Exam: GENERAL: Alert, oriented gentleman, not in distress. VITAL SIGNS: Stable, afebrile. HEENT: NAD. NECK: Supple, no JVP, no lymphadenopathy. LUNGS: Clear. HEART: S1, S2, regular. ABDOMEN: Benign. EXTREMITIES: No edema, cyanosis. SKIN: The patient does have extensive psoriatic rash present. He may have had a different rash other than his psoriasis, it is hard to say. There is no mucous membrane involved. There is no blistering. General: Alert, Oriented X3, Cooperative Heart: Regular rate Lungs: Clear Abdomen: Normal bowel sounds Extremities: No clubbing Skin: No rashes Comment Review of Relevant I have reviewed the following items carlito (where applicable) has been applied. Justifications for Admission Other Justification Pneumonia and thrombocytopenia YAYO NAM MD Aug 23, 2021 10:41
[2021-08-23 11:00] VITALS: BP 141/90
--- NOTE | 2021-08-23 11:40 | PDOC ---
PULMONARY PROGRESS NOTES DATE: 08/23/21 TIME: 11:38 Subjective Patient is resting comfortably in bed on 2 L nasal cannula, denies any shortness of breath, cough, afebrile, no overnight concerns from nursing, rash appears to be subsiding Vitals Vital Signs Date Time Temp Pulse Resp B/P (MAP) Pulse Ox O2 Delivery O2 Flow Rate FiO2 08/23/21 08:15 Nasal Cannula 2.0 08/23/21 07:00 98.4 60 19 126/84 (98) 95 98.4 ROS: No Nausea, No Chest Pain, No Abdominal Pain, No Increase Cough General: Alert, Oriented X4, No acute distress Lungs: Clear Cardiovascular: S1 Abdomen: Soft, Non-tender Extremities: No Edema, Other (Psoriatic lesions and rash, improving.) Medications Active Scripts Medications Dose Route/Sig Max Daily Dose Days Date Category Proair Hfa Inhaler (Albuterol Sulfate) 8.5 Gm Hfa.aer.ad 2 Puff IH Q4HRS PRN 21 08/15/21 Reported Impression . IMPRESSION: 1. Acute hypoxic respiratory failure requiring 6 liters of oxygen due to suspected pneumonitis. He has been battling with upper and lower respiratory tract symptoms since last year after he had COVID vaccine. He has also been on Cosentyx for psoriasis. This can contribute to respiratory tract infections.. He could be at possible risk for lymphoma related to drug. 2. Abnormal CT chest with increase in mediastinal, hilar and axillary lymphadenopathy along with splenomegaly and ascites. The clinical picture is suspicious for lymphoma. Possibility of mycosis fungoides/cutaneous T-cell lymphoma is also concerning, less likely Sarcoidosis. 3. No significant tobacco history. 4. Thrombocytopenia. This is associated with a rash. Could be ITP versus mycosis fungoides/cutaneous T-cell lymphoma vs related to hypersplenism . Lovenox on hold. as well. 5. Mild leukocytosis.--Resolved 6. Acute sinusitis and possible mild pneumonitis. . Plan . Continue as needed oxygen, keep oxygen saturations greater than 94%, wean as tolerated, Bronchodilators Follow infectious disease recommendations in regards to antibiotic therapy Status post axillary lymph node biopsy, Patient may benefit from skin biopsy Patient will need outpatient ENT follow-up Pending results of MRI of liver lesion to rule out any mass Discussed with pathologist. Preliminary diagnosis of flow cytometry does not reveal lymphoma. Final results in next 24 hours. Need to rule out lymphoma versus possible sarcoidosis. DVT/GI prophylaxis Discussed with BARBARA FLORES MD Aug 23, 2021 11:40
--- NOTE | 2021-08-23 12:05 | PDOC ---
Infectious Disease Note Subjective Subjective Patient is feeling good rash is improving ROS ROS no n/v/d/ Vital Sign Vital Signs Vital Signs Date Time Temp Pulse Resp B/P (MAP) Pulse Ox O2 Delivery O2 Flow Rate FiO2 08/23/21 08:15 Nasal Cannula 2.0 08/23/21 07:00 98.4 60 19 126/84 (98) 95 98.4 Physical Exam PHYSICAL EXAM GENERAL: Alert, oriented gentleman, not in distress. VITAL SIGNS: Stable, afebrile. HEENT: NAD. NECK: Supple, no JVP, no lymphadenopathy. LUNGS: Clear. HEART: S1, S2, regular. ABDOMEN: Benign. EXTREMITIES: No edema, cyanosis. SKIN: The patient does have extensive psoriatic rash present. He may have had a different rash other than his psoriasis, it is hard to say. There is no mucous membrane involved. There is no blistering. Objective Assessment IMPRESSION: 1. History of fever, which has not had any since here. 2. Psoriasis with extensive rash. 3. Hilar mediastinal and axillary. Lymph node biopsy from the axilla has been done. May need a hepatic lobe biopsy if there is no answer on to the OR lymph node biopsy. Plan Plan of Care Preliminary report on axillary biopsy not showing any lymphoma or malignancy but flow cytometry is pending If no answer with axillary biopsy then we may have to do mediastinal biopsy and or liver mass biopsy Also I would do fungal cultures and AFB cultures JYOTI CONDE MD Aug 23, 2021 12:05
--- NOTE | 2021-08-23 13:36 | RAD ---
EXAMINATION: MRI abdomen without IV contrast. INDICATION:46 years, Male, liver lesions. TECHNIQUE: Multiplanar multisequence MRI of the abdomen was performed. COMPARISON: CT dated 08/18/2021. FINDINGS: LOWER CHEST: Unremarkable. ABDOMEN: Within the limitation of noncontrast exam, Normal size and morphology of the liver. No steatosis or iron deposition. There is a 3.5 x 3.9 cm, lo bulated T2 hyperintense lesion in hepatic segment 7. Additional, there is a 1.8 cm T2 hyperintense le nando in hepatic segment 5. These lesions are incompletely evaluated due to lack of IV contrast. Keke cystectomy. No biliary ductal dilation. There are 2 splenic lesions with T2 bright signal and bright T1 rim seen in the superior and inferior spleen, the largest measures 4.7 cm. Mildly atrophic pancreatic parenchyma. Pancreatic divisum. No adrenal nodule. No hydronephrosis. Nons pecific bilateral perinephric fat stranding. No bowel dilation. Trace amount of abdominopelvic ascite s. Normal caliber abdominal aorta. No lymphadenopathy. MUSCULOSKELETAL STRUCTURES: No suspicious osseous lesion. IMPRESSION: Within the limitation of noncontrast exam, 1. Two right hepatic lobe lesions measuring up to 3.9 cm; the imaging features of these lesions sugge sting of complicated cyst versus hemangiomas. Recommend further evaluation with ultrasound abdomen. 2. Two simple splenic lesions measuring up to 4.7 cm with imaging features suggesting of hemangiomas. These can be further evaluated by the recommended ultrasound. 3. Pancreatic divisum. 4. Small amount of abdominal ascites. Electronically signed by: Cortes Wray MD (08/23/2021 1:33 PM) [id number]
[2021-08-23 15:00] VITALS: BP 140/88
[2021-08-23 19:00] VITALS: BP 132/90
--- NOTE | 2021-08-23 19:05 | NUR ---
Discontinued Guest Associate, no ectopy noted.
[2021-08-23] MEDS: guaiFENesin/CODEINE 100mg/10mg 5 ML LIQUID PO PRN (21:53)
[2021-08-23 23:00] VITALS: BP 143/91
[2021-08-24 03:32] VITALS: BP 139/92
[2021-08-24 07:00] VITALS: BP 119/92
[2021-08-24] MEDS: IV NORMAL SALINE 1000ML BAG 1,000 ML IV SCH (08:00)
[2021-08-24] MEDS: CLOBETASOL EMOLLIENT 0.05% TOPICAL CREAM 15GM TUBE. TP SCH (08:33)
[2021-08-24] MEDS: predniSONE 20 MG TABLET PO SCH (08:33)
[2021-08-24] MEDS: BENZONATATE 100 MG CAPSULE. PO SCH ×2 (08:33→13:39)
--- NOTE | 2021-08-24 10:34 | PDOC ---
PULMONARY PROGRESS NOTES DATE: 08/24/21 TIME: 10:32 Subjective Patient is resting comfortably in bed on room air. Denies any shortness of breath, cough, afebrile, no overnight concerns from nursing, rash appears to be subsiding Vitals Vital Signs Date Time Temp Pulse Resp B/P (MAP) Pulse Ox O2 Delivery O2 Flow Rate FiO2 08/24/21 08:00 Room Air 08/24/21 07:00 97.4 81 18 119/92 (101) 93 2.0 97.4 ROS: No Nausea, No Chest Pain, No Abdominal Pain, No Increase Cough General: Alert, Oriented X4, No acute distress Lungs: Clear Cardiovascular: S1 Abdomen: Soft, Non-tender Extremities: No Edema, Other (Psoriatic lesions and rash, improving.) Medications Active Scripts Medications Dose Route/Sig Max Daily Dose Days Date Category Proair Hfa Inhaler (Albuterol Sulfate) 8.5 Gm Hfa.aer.ad 2 Puff IH Q4HRS PRN 21 08/15/21 Reported Impression . IMPRESSION: 1. Acute hypoxic respiratory failure requiring 6 liters of oxygen due to suspected pneumonitis. He has been battling with upper and lower respiratory tract symptoms since last year after he had COVID vaccine. He has also been on Cosentyx for psoriasis. This can contribute to respiratory tract infections.. He could be at possible risk for lymphoma related to drug. 2. Abnormal CT chest with increase in mediastinal, hilar and axillary lymphadenopathy along with splenomegaly and ascites. The clinical picture is suspicious for lymphoma. Possibility of mycosis fungoides/cutaneous T-cell lymphoma is also concerning, cannot exclude sarcoidosis. 3. No significant tobacco history. 4. Thrombocytopenia. This is associated with a rash. Could be ITP versus mycosis fungoides/cutaneous T-cell lymphoma vs related to hypersplenism . Lovenox on hold. as well. 5. Mild leukocytosis.--Resolved 6. Acute sinusitis and possible mild pneumonitis. . Plan . Continue as needed oxygen, keep oxygen saturations greater than 94%, wean as tolerated, Bronchodilators Follow infectious disease recommendations in regards to antibiotic therapy Status post axillary lymph node biopsy, pulmonary results not suggestive of lymphoma. MRI of the liver suggestive of complicated cyst versus hemangioma. Patient may benefit from outpatient thoracic surgery consult for mediastinoscopy for a definite diagnosis Patient will need outpatient ENT follow-up Discussed with pathologist. Awaiting final results today Need to rule out lymphoma versus possible sarcoidosis. DVT/GI prophylaxis Discussed with BARBARA FLORES MD Aug 24, 2021 10:34
[2021-08-24 11:00] VITALS: BP 132/84
--- NOTE | 2021-08-24 12:26 | PDOC3 ---
[facility]-Discharge Summary Date of Admission: Date of Admission: Aug 16, 2021 Date of Discharge: Date of Discharge: Aug 24, 2021 Admission Diagnosis: Problems: (1) Acute respiratory failure Hospital Course: Hospital Course: Chief Complaint Assessment/Plan Acute hypoxic respiratory failure Atypical bilateral pneumonia, possible viral organisms Acute electrolyte derangementhyponatremia, hypochloremia, hyperkalemia suggestive of volume depletion ELSA due to vasomotor nephropathy Thrombocytopenia, concerning for ITP Small abdominal pelvic ascites with mesenteric edema. Ill-defined hypodense mass within the right hepatic lobe Nonobstructing intrarenal calculi Increased bulky mediastinal, hilar and axillary lymphadenopathy, concerning for malignancy such as lymphoma or metastasis, s/p Axillary LN Bx 08/19/21 Increased splenomegaly. small left lower lobe pulmonary nodule Pending ID evaluation. Pending CEA and AFP levels Pending copper levels Pulmonary consult O2 supplementation to maintain O2 saturations greater than 90% Continue empiric IV antibiotics Pending Legionella urine antigen and MRSA Continue IV fluids IV electrolyte replacement as needed Avoid nephrotoxic agents Strict I's/O and monitor urine output Hematology consult Will start on prednisone 40 mg twice daily Trend platelets daily Clobetasol cream for his psoriasis Pending HIV and hepatitis panel Lovenox for DVT prophylaxis Regular diet CODE STATUS full Discussed with RN and SW Disposition inpatient management as above DPOA: Undesignated History of Present Illness History of Present Illness 46-year-old male with past medical history of detention psoriasis and sinusitis since May who presents to [facility] ER for flulike symptoms and a rash since last Monday. Apparently, he was admitted in February 2020 for respiratory failure but he was both influenza and Covid negative at that time. Patient has also been dealing with sinusitis since May is ever since he stopped taking Cosentyx for his psoriasis. He has been on 3 different antibiotics and he says that his last CT showed acute on chronic sinusitis. Patient does report yellow sputum production and postnasal drip and cough. He also reports that his fevers on Monday was up to 103. He also describes his rash is starting in his upper extremities and his chest which is dark red and there is some itchiness. Patien t denies any chills, abdominal pain, bloody stools, dysuria, chest pain or syncope or palpitations. 08/17/2021 No acute events overnight. Patient seen examined bedside. Still requiring 6 L nasal cannula of oxygen still saturating 96%. No other explanations for his hypoxia. Patient complains of chest tightness and nasal congestion. Does not really explain his hypoxia. Will obtain CT chest to rule out PE. Hematology evaluation still pending. Labs still pending. Tolerating prednisone well and progression of rash has stopped. Patient's chart, labs, images were reviewed and discussed with RN 08/19/2021 No acute events overnight. Patient seen examined bedside. AF and VSS. Saturating 4 L nasal cannula O2 saturating well. Pending axillary lymph node bi opsy. Concerning for lymphoma. Pending MRI of the liver for hypodense lesion seen on CT. Patient's chart, labs, images were reviewed and discussed with RN 08/20/21 No acute events overnight. AF and VSS. Tolerating 4L NC. Rash is not progressing but slowly resolving. Pending pathology results from Axillary LN Bx. 08/22/2021 No acute events overnight. Patient seen examined bedside. Rash resolving. Pending pathology results. Antibiotics have been discontinued. Continue with steroids. Patient's chart, labs, images were reviewed and discussed with RN 08/23 Evaluated examined at bedside. Confusion if MRI can be completed inpatient or not. Either way waiting for fungal acid-fast cultures. Further pending pathology results. If we can clarify this may be able to discharge today or tomorrow,. 08/24 Evaluated examined at bedside doing well no complaints. Appropriate for disc harge today. Multiple follow-ups needed. Greater than 30 minutes spent on this discharge. Disposition: Disposition/Orders: D/C to Another Facility Activity: Activity: Resume previous activity Diet: Diet: Regular Medications: Home Meds Active Scripts Clobetasol Propionate/Emoll (CLOBETASOL EMOLLIENT 0.05% CRM) 15 Gm Cream..g., 1 SERGE TP BID for psoriasis for 30 Days, #60 EACH 2 Refills Prov:LEIGH ANN MARTÍNEZ MD 08/22/21 Benzonatate (BENZONATATE) 100 Mg Capsule, 100 MG PO [id number] for cough for 14 Days, #42 CAP Prov:LEIGH ANN MARTÍNEZ MD 08/22/21 Reported Medications Albuterol Sulfate (PROAIR HFA INHALER) 8.5 Gm Hfa.aer.ad, 2 PUFF IH Q4HRS PRN for wheezing for 21 Days, #1 INHALER 0 Refills 08/15/21 Scheduled Benzonatate (Benzonatate), 100 MG PO [id number] Clobetasol Propionate/Emoll (Clobetasol Emollient 0.05% Crm), 1 SERGE TP BID Scheduled PRN Albuterol Sulfate (Proair Hfa Inhaler), 2 PUFF IH Q4HRS PRN for wheezing, (Reported) Justicifation of Admission Dx: Justifications for Admission: Justification of Admission Dx: Yes (respiratory failure) YAYO NAM MD Aug 24, 2021 12:26
--- NOTE | 2021-08-24 13:56 | NUR ---
Discharge Note: [facility] [place] Discharge instructions and discharge home medications reviewed with Patient and a copy given. All questions have been answered and understanding verbalized. The following instructions and handouts were given: discharge instructions, new prescriptions, education and follow up recommendations. Discontinued lines and drains: Peripheral IV discontinued intact. Patient discharged to [facility] with Police via [employer]ulated
[2021-08-24 14:13] LABS: HISTOPLASMA AG URINE <0.5 (<0.5 ng/mL)
== END 2021-08-24 13:48 | DRG 987 ==
LOC: 5 NORTH 23:25 → EEVIPCON 23:25
PROVIDERS: ADMIT Internal Medicine; ATTEND Internal Medicine
PROC: 07B63ZX Excision of Left Axillary Lymphatic, Percutaneous Approach, Diagnostic (ICD-10-PCS; principal; 2021-08-19)
DX: J12.9 Viral pneumonia, unspecified (principal); J96.01 Acute respiratory failure with hypoxia; N17.0 Acute kidney failure with tubular necrosis; R18.8 Other ascites; E87.1 Hypo-osmolality and hyponatremia; D69.3 Immune thrombocytopenic purpura; B34.9 Viral infection, unspecified; D69.6 Thrombocytopenia, unspecified; J01.90 Acute sinusitis, unspecified; K29.80 Duodenitis without bleeding; L40.9 Psoriasis, unspecified; N20.0 Calculus of kidney; Z68.34 Body mass index [BMI] 34.0-34.9, adult; Z86.16 Personal history of COVID-19; Z20.822 Contact with and (suspected) exposure to COVID-19; Z88.8 Allergy status to other drugs, medicaments and biological substances; R59.0 Localized enlarged lymph nodes; E87.8 Other disorders of electrolyte and fluid balance, not elsewhere classified; E87.5 Hyperkalemia; E86.9 Volume depletion, unspecified; R91.1 Solitary pulmonary nodule
CPT/HCPCS: 36415; 38505; 71275; 74176; 74181; 76942; 80048; 82105; 82378; 82525; 82668; 82728; 83010; 83540; 83550; 83615; 83735; 84100; 84443; 85025; 85045; 86644; 86645; 86703; 86705; 86709; 86803; 87340; 87385; 87449; 87641; 87899; 88184; 88185; J0696; J0780; J1200; J1650; J2543; J3490; J7030; J7512; Q9966; Q9967; G0378

== ENCOUNTER 2021-10-07 11:02 | Emergency (ER) | payer OTHER ==
[~2021-10-07] VITALS: Ht 165.1 cm; Wt 84.0 kg
[~2021-10-07 11:02] MED LIST: ALBU2.5V8 IH; BENZ-8 PO; CLOB15CR27 TP
[2021-10-07 13:22] LABS: BASO # 0.1 x10^3/uL (0.0-0.2); BASO % 1 % (0-3); EOS # 0.1 x10^3/uL (0.0-0.7); EOS % 1 % (0-3); HEMATOCRIT 39.5 % (39.0-53.0); HEMOGLOBIN 13.2 g/dL (13.0-17.5); LYMPH # 0.9 x10^3/uL (1.0-4.8); LYMPH % 13 % (24-48); MEAN CORPUSCULAR HEMOGLOBIN 26 pg (25-35); MEAN CORPUSCULAR HGB CONC 33 g/dL (31-37); MEAN CORPUSCULAR VOLUME 79 fL (79-100); MONO # 0.8 x10^3/uL (0.0-1.1); MONO % 11 % (0-9); NEUT # 5.2 x10^3/uL (1.8-7.7); NEUT % 73 % (31-73); PLATELET COUNT 223 x10^3/uL (140-400); RED CELL DISTRIBUTION WIDTH 18.3 % (11.5-14.5); WHITE BLOOD COUNT 7.1 x10^3/uL (4.0-11.0)
[2021-10-07 14:21] LABS: ALBUMIN 1.1 g/dL (3.4-5.0); ALBUMIN/GLOBULIN RATIO 0.2 (1.0-1.7); C-REACTIVE PROTEIN 59.5 mg/L (0-3.3); CALCIUM 9.2 mg/dL (8.5-10.1); CREATININE 0.8 mg/dL (0.7-1.3); GFR 103.2; POTASSIUM 3.9 mmol/L (3.5-5.1); TOTAL BILIRUBIN 0.4 mg/dL (0.2-1.0); TOTAL PROTEIN 6.5 g/dL (6.4-8.2); URIC ACID 5.7 mg/dL (3.5-7.2)
--- NOTE | 2021-10-07 14:36 | PHYS DOC ---
Past Medical History Past Surgical History: No Surgical History Smoking Status: Never Smoker Alcohol Use: None General Adult EDM: Chief Complaint: OTHER COMPLAINTS HPI: HPI: Patient is a 46 year old male who presents with here with the police as he is in custody states he has had right ankle pain and swelling along with left ankle pain and swelling and left hand pain and swelling for the last 2 weeks with a red macular papule rash that has popped up all over his body. He states he at times gets sharp shooting pains in his legs and feet also. He states he was here recently for a respiratory infection and has been off of ant ibiotics and prednisone for the last week and a half. States the rash was itchy. He states a couple weeks ago he had been running a fever of 101 but he was not seen for that and they gave him Tylenol. He only rates his pain a 5 out of 10 at this time. He states he feels like his right hand is starting to swell but his left hand is weak and painful and very swollen. Review of Systems: Review of Systems: Constitutional: Denies fever or chills. [] Eyes: Denies change in visual acuity. [] HENT: Denies nasal congestion or sore throat. [] Respiratory: Denies cough or shortness of breath. [] Cardiovascular: Denies chest pain or + right and left ankle swelling edema. + Left hand swelling [] GI: Denies abdominal pain, nausea, vomiting, bloody stools or diarrhea. [] : Denies dysuria. [] Musculoskeletal: Denies back pain or joint pain. + Extremity swelling. + Right ankle pain, +left ankle pain, +left hand pain, +bilateral feet and leg sharp shooting pain. [] Integument: + Generalized rash. [] Neurologic: Denies headache, focal weakness or sensory changes. [] Endocrine: Denies polyuria or polydipsia. [] Lymphatic: Denies swollen glands. [] Psychiatric: Denies depression or anxiety. [] Heart Score: C/O Chest Pain: No Allergies: Allergies: Allergies Coded Allergies Type Severity Reaction Last Updated Verified blue dye Allergy Severe Anaphylaxis 10/07/21 Yes ibuprofen Allergy Severe ANAPHYLAXIS 10/07/21 Yes red dye Allergy Severe Anaphylaxis 10/07/21 Yes Physical Exam: PE: Constitutional: Well developed, well nourished, no acute distress, non-toxic appearance. [] HENT: Normocephalic, atraumatic, bilateral external ears normal, oropharynx moist, no oral exudates, nose normal. [] Eyes: PERRLA, EOMI, conjunctiva normal, no discharge. [] Neck: Normal range of motion, no tenderness, supple, no stridor. [] Cardiovascular:Heart rate regular rhythm, no murmur [] Lungs & Thorax: Bilateral breath sounds clear to auscultation [] Abdomen: Bowel sounds normal, soft, no tenderness, no masses, no pulsatile masses. [] Skin: Warm, dry, no erythema, legs, arms red macule papule rash. [] Back: No tenderness, no CVA tenderness. [] Extremities: No tenderness, no cyanosis, no clubbing, ROM intact, no edema. [] Neurologic: Alert and oriented X 3, normal motor function, normal sensory function, no focal deficits noted. [] Psychologic: Affect normal, judgement normal, mood normal. [] Current Patient Data: Labs: Laboratory Tests Test 10/07/21 11:45 White Blood Count 7.1 x10^3/uL (4.0-11.0) Red Blood Count 5.00 x10^6/uL (4.30-5.70) Hemoglobin 13.2 g/dL (13.0-17.5) Hematocrit 39.5 % (39.0-53.0) Mean Corpuscular Volume 79 fL (79-100) Mean Corpuscular Hemoglobin 26 pg (25-35) Mean Corpuscular Hemoglobin Concent 33 g/dL (31-37) Red Cell Distribution Width 18.3 % (11.5-14.5) H Platelet Count 223 x10^3/uL (140-400) Neutrophils (%) (Auto) 73 % (31-73) Lymphocytes (%) (Auto) 13 % (24-48) L Monocytes (%) (Auto) 11 % (0-9) H Eosinophils (%) (Auto) 1 % (0-3) Basophils (%) (Auto) 1 % (0-3) Neutrophils # (Auto) 5.2 x10^3/uL (1.8-7.7) Lymphocytes # (Auto) 0.9 x10^3/uL (1.0-4.8) L Monocytes # (Auto) 0.8 x10^3/uL (0.0-1.1) Eosinophils # (Auto) 0.1 x10^3/uL (0.0-0.7) Basophils # (Auto) 0.1 x10^3/uL (0.0-0.2) Sodium Level 138 mmol/L (136-145) Potassium Level 3.9 mmol/L (3.5-5.1) Chloride Level 101 mmol/L (98-107) Carbon Dioxide Level 27 mmol/L (21-32) Anion Gap 10 (6-14) Blood Urea Nitrogen 20 mg/dL (8-26) Creatinine 0.8 mg/dL (0.7-1.3) Estimated GFR (Cockcroft-Gault) 103.2 BUN/Creatinine Ratio 25 (6-20) H Glucose Level 83 mg/dL (70-99) Uric Acid 5.7 mg/dL (3.5-7.2) Calcium Level 9.2 mg/dL (8.5-10.1) Total Bilirubin 0.4 mg/dL (0.2-1.0) Aspartate Amino Transferase (AST) 18 U/L (15-37) Alanine Aminotransferase (ALT) 29 U/L (16-63) Alkaline Phosphatase 140 U/L (46-116) H C-Reactive Protein, Quantitative 59.5 mg/L (0-3.3) H VF-Fgb-P-Type Natriuretic Peptide 94 pg/mL (0-124) Total Protein 6.5 g/dL (6.4-8.2) Albumin 1.1 g/dL (3.4-5.0) L Albumin/Globulin Ratio 0.2 (1.0-1.7) L Laboratory Tests 10/07/21 11:45 Laboratory Tests 10/07/21 11:45 Vital Signs: Vital Signs Date Time Temp Pulse Resp B/P (MAP) Pulse Ox O2 Delivery O2 Flow Rate FiO2 10/07/21 11:30 98.1 80 14 114/85 (95) 98 Room Air 98.1 EKG: EKG: [] Radiology/Procedures: Radiology/Procedures: [] Impression: [facility] [address] [place] [address] IMAGING REPORT Signed PATIENT: SHAQ GRACE ACCOUNT: [id number] : 1975 LOCATION: ER AGE: 46 SEX: M EXAM STATUS: REG ER ORD. PHYSICIAN: BHARGAVI ALLEN APRN REASON: swelling, pain PROCEDURE: VENOUS UPPER EXTREMITY LEFT EXAM: Left upper extremity venous Doppler sonogram. HISTORY: Pain and swelling. TECHNIQUE: Duran scale and color Doppler sonographic evaluation of the left upper extremity veins with spectral waveform analysis was performed. FINDINGS: There is normal color flow, normal compressibility and there are normal spectral waveforms in the upper extremity veins. IMPRESSION: No Doppler evidence of upper extremity venous thrombosis. Electronically signed by: Lor Bowesr MD (10/07/2021 4:57 PM) [id number] DICTATED and SIGNED BY: LOR BOWERS MD DATE: 10/07/211656 Course & Med Decision Making: Course & Med Decision Making Pertinent Labs and Imaging studies reviewed. (See chart for details) See HPI. Alert and oriented x4. Ambulatory with a steady gait. Generalized macular papular rash that looks red but not weeping. He states at first he was itchy but is not anymore. Left hand is 3+ swollen and painful. Radial pulses strong and present. Cap refill less than 2 seconds. Pedal pulses strong and present. Cap refill less than 2 seconds. Blood work came back generally unremarkable except for CRP and his ESR are elevated. I am going to get a ultrasound of the left extremity to make sure there is no comment of DVT. I had Dr. Stone come in and take a look at the patient himself. He states that the rash looks nonspecific but there is nothing that the patient needs to be admitted for that is acute care today. He states he needs to go see nephrology specialty. He states we could put the patient back on some steroid as the patient did state that the steroid was helping. Patient did just start Lasix on this past Monday and the patient states that the swelling is going down. Ultrasound shows no acute findings. Patient discharged back to facility. [] Alejandrinaon Disclaimer: Dragon Disclaimer: This electronic medical record was generated, in whole or in part, using a voice recognition dictation system. Departure Departure Impression: Primary Impression: Rash and nonspecific skin eruption Additional Impression: Swelling of extremity Disposition: 01 HOME / SELF CARE / HOMELESS Condition: STABLE Referrals: DARLING BLANTON MD Patient Instructions: Peripheral Edema, Rash Additional Instructions: Follow-up with a clin tech that I have listed on your paperwork for further work-up as soon as they can get you in. Take medication as prescribed and with food. Continue taking all your other medications as they are prescribed. If anything worsens, you start having numbness in your left hand and swelling gets worse or you begin having skin color change or you begin running a fever return to the emergency room. Scripts Methylprednisolone (MEDROL) 4 Mg Tab.ds.pk 1 PKG PO UD, #1 PKG Prov: BHARGAVI ALLEN APRN 10/07/21 BHARGAVI ALLEN APRN October 07, 2021 14:36
[2021-10-07 15:36] VITALS: BP 135/63
--- NOTE | 2021-10-07 17:00 | RAD ---
EXAM: Left upper extremity venous Doppler sonogram. HISTORY: Pain and swelling. TECHNIQUE: Duran scale and color Doppler sonographic evaluation of the left upper extremity veins with spectral waveform analysis was performed. FINDINGS: There is normal color flow, normal compressibility and there are normal spectral waveforms in the upper extremity veins. IMPRESSION: No Doppler evidence of upper extremity venous thrombosis. Electronically signed by: Lor York MD (10/07/2021 4:57 PM) [id number]
[2021-10-07] MEDS ORDERED: METH4TAB2 PO (17:06)
== END 2021-10-07 17:24 | disposition home or self-care (01) ==
LOC: EEVIPCON 11:02 → ER 11:02
DX: R22.43 Localized swelling, mass and lump, lower limb, bilateral (principal); M25.572 Pain in left ankle and joints of left foot; M25.571 Pain in right ankle and joints of right foot; Z91.041 Radiographic dye allergy status; Z88.8 Allergy status to other drugs, medicaments and biological substances
CPT/HCPCS: 36415; 80053; 83880; 84550; 85025; 85651; 86140; 93971; 99285-25